=== PATIENT | male | born 1955 | race Caucasian/White ===

== ENCOUNTER 2016-12-18 09:42 | Inpatient (IN) ==
[2016-12-18] MEDS ORDERED: methylPREDNISolone 125 MG/2 ML VIAL IVP ONE (10:01)
--- NOTE | 2016-12-18 10:03 | Emergency Department Note ---
Disposition Clinical Impression: Angio-edema Qualifiers: Encounter type: initial encounter Qualified Code(s): T78.3XXA - Angioneurotic edema, initial encounter Disposition: Admitted As Inpatient Condition: Critical Referrals: Jj Hathaway DO [Primary Care Provider] - Forms: Work/School Release, ED Satisfaction Letter Allergic Reaction HPI - General Chief complaint: ED General Medical Stated complaint: Throat swelling Time Seen by Provider: 12/18/16 09:57 Source: patient Limitations: no limitations Nursing Notes Reviewed: Yes Vital Signs Reviewed: Yes - History of Present Illness HPI Narrative: She is a 61-year-old male with a history of hypertension presents today with swelling of his tongue. He has not taken his lisinopril in a while hehis blood pressure was high took one dose of lisinopril Hydrocort Dyazide last evening and one this morning. He noticed a little bit of tongue swelling yesterday but did not correlate the 2. He comes in this morning with worsening swelling he denies any difficulty swallowing breathing or any wheezes or stridor. Nothing makes his symptoms better or worse. - Related Data Previous Rx's Medication Instructions Recorded amLODIPine [Norvasc] 10 mg PO DAILY #30 tablet 03/19/16 Amoxicillin [Amoxil] 500 mg PO TID #30 capsule 04/14/16 Hydrocodone/Acetaminophen [[place] 1 tab PO Q4H PRN #8 tab 04/14/16 5-325 Tablet] Allergies Allergy/AdvReac Type Severity Reaction Status Date / Time acetaminophen [From Percocet] Allergy Itching Verified 03/18/16 13:32 codeine Allergy Itching Verified 03/12/16 13:34 Oxycodone [From Percocet] Allergy Itching Verified 03/12/16 13:31 All systems ED: reviewed and negative except as stated. Constitutional: Denies: fever, chills, weakness Respiratory: Denies: dyspnea, wheezes, hemoptysis Past Medical History - Past Medical History Source: patient, nursing notes reviewed Medical history: Reports: hypertension Surgical history: Reports: no surgical history Psychiatric history: Reports: no psych history - Social History Smoking Status: Current every day smoker Smokeless Tobacco Status: No Alcohol use: Reports: rarely Drug use: Reports: marijuana Physical Exam - General Limitations: no limitations General appearance: alert - Head Head exam: atraumatic, normocephalic, normal inspection - Eye Eye exam: Present: normal appearance, PERRL, EOMI - Expanded Eye Exam Pupils: Left: reactive - ENT ENT exam: other (Patient has isolated tongue swelling the left of the midline he has no submental edema or fullness) - Expanded ENT Exam External ear exam: Present: normal external inspection Mouth exam: Present: normal external inspection Teeth exam: Present: normal inspection Throat exam: Present: normal inspection - Neck Neck exam: Present: normal inspection, full ROM, trachea midline - Chest Chest inspection: Present: normal inspection, symmetric chest wall rise - Respiratory Respiratory exam: Present: normal lung sounds bilaterally - Cardiovascular Cardiovascular exam: Present: regular rate, normal rhythm, normal heart sounds - Abdominal Exam Abdominal exam: Present: soft, Non-Tender. Absent: tenderness, distention, guarding, rebound, rigidity - Extremities Exam Extremities exam: Present: normal inspection, full ROM. Absent: tenderness, pedal edema - Expanded Upper Extremity Exam Shoulder exam: Present: normal inspection, full ROM Arm exam: Present: normal inspection, full ROM Elbow exam: Present: normal inspection, full ROM Forearm/Wrist exam: Present: normal inspection, full ROM Hand exam: Present: normal inspection, full ROM Vascular exam: Normal: capillary refill, radial pulse - Expanded Lower Extremity Exam Hip/Pelvis exam: Present: normal inspection, full ROM Upper leg exam: Present: normal inspection, full ROM Knee exam: Present: normal inspection, full ROM Lower leg exam: Present: normal inspection, full ROM Ankle exam: Present: normal inspection, full ROM Foot/toe exam: Present: normal inspection, full ROM Neurovascular/Tendon exam: Absent: motor deficit, sensory deficit, tendon deficit - Back Exam Back exam: Present: normal inspection, full ROM. Absent: tenderness - Neurological Exam Neurological exam: Present: alert, oriented X3 - Expanded Neurological Exam Patient oriented to: Present: person, place, time Coma Scale Eye Opening: Spontaneous Coma Scale Motor Response: Obeys Commands Coma Scale Verbal Response: Oriented Coma Scale Total: 15 - Psychiatric Psychiatric exam: Present: normal affect, normal mood - Skin Skin exam: Present: warm, dry, intact, normal color Course - Reevaluation(s) Reevaluation #1: no worsening of symptoms or exam Time: 10:51 Reevaluation #2: Patient swelling of his tongue continued to worsen and also now crossing the midline. He still had only secretions we discussed with him at length about elective intubation before this worsens which could require a surgical airway. He was in agreement also contacted his brother who is here and also a sister who is his POA. Time: 12:15 Vital Signs Temperature 97.5 F L 12/18/16 09:50 Pulse Rate 65 12/18/16 09:50 Respiratory Rate 18 12/18/16 09:50 Blood Pressure 193/111 12/18/16 09:50 O2 Sat by Pulse Oximetry 99 12/18/16 09:50 Temperature 97.5 F L 12/18/16 09:50 Pulse Rate 88 12/18/16 12:17 Respiratory Rate 14 12/18/16 12:17 Blood Pressure 178/114 12/18/16 12:17 O2 Sat by Pulse Oximetry 99 12/18/16 12:17 Oxygen Delivery Oxygen Delivery Ventilator Procedures - Intubation Time out performed: Yes sedative: Ketamine Mg Given: 180 Laryngoscope: Raya ET Tube Size: 7.5 ET Tube Uncuffed: No Tube Secured Depth (cm): 24 Tube Secured Location: lips Tube Placement Confirmation: visualized tube passing through cords, equal breath sounds bilaterally Patient Tolerated Procedure: well, no complications Intubation Complications: none Allergic Reaction - Lab Data Result diagrams: 12/18/16 12:15 12/18/16 12:15 Lab Results 12/18/16 12/18/16 12/18/16 Range/Units 12:15 12:15 12:15 WBC 15.2 H (4.3-11.1) K/mcL RBC 5.90 H (4.19-5.50) M/mcL Hgb 17.5 H (12.9-16.9) g/dL Hct 50.9 H (37.5-50.1) % MCV 86.3 (83.0-100.0) fL MCH 29.7 (28.0-33.3) pg MCHC 34.4 (31.6-35.5) g/dL RDW 12.3 (11.5-14.5) % Plt Count 251 (140-400) K/mcL MPV 11.2 (9.4-12.4) fL Immature Gran % 0.6 (0-4) % Seg Neutrophils % 77.8 % Lymphocytes % 17.9 % Monocytes % 3.2 % Eosinophils % 0.2 % Basophils % 0.3 % Neutrophils # 11.9 H (1.6-8.9) K/mcL Lymphocytes # 2.7 (0.6-4.6) K/mcL Monocytes # 0.5 (0.0-1.3) K/mcL Eosinophils # 0.0 (0.0-0.6) K/mcL Basophils # 0.0 (0.0-0.2) K/mcL PT 11.6 (9.4-12.1) Seconds INR 1.1 APTT 30.0 (26.0-36.0) Seconds Sodium 135 L (136-145) mEq/L Potassium 4.0 (3.5-4.5) mEq/L Chloride 102 (98-109) mEq/L Carbon Dioxide 24 (19-29) mEq/L BUN 14 (8-26) mg/dL Creatinine 1.06 (0.72-1.25) mg/dL Est GFR ( Amer) > 60 (> 60) Est GFR (Non-Af Amer) > 60 (> 60) BUN/Creatinine Ratio 13 (6-26) Glucose 140 H (70-99) mg/dL Calculated Osmolality 283 (280-300) Calcium 9.7 (8.6-10.8) mg/dL Critical Care Time Critical Care Time: Yes Total Critical Care Time: 40 Attestation: Critical care performed: Time is exclusive of separately billable procedures. Time includes: direct patient care, patient reassessment, coordination of patient care, interpretation of data (laboratory data, radiology data, and respiratory data), review of patient's medical records, medical consultation and documentation of patient care. Procedures included in critical care time: Procedures excluded from critical care time:
[2016-12-18] MEDS ORDERED: *HR* Rocuronium Bromide 50 MG/5 ML VIAL IVP ONE (11:40)
[2016-12-18] MEDS ORDERED: *HR* Etomidate 20 MG/10 ML AMPUL IVP ONE (11:41)
[2016-12-18] MEDS ORDERED: Ketamine *HR* 500 MG/10 ML MDV ONE (11:52)
[2016-12-18] MEDS ORDERED: Ketamine *HR* 500 MG/10 ML MDV IVP ONE (11:52)
[2016-12-18] MEDS ORDERED: *HR* FentaNYL (PF) 100 MCG/2 ML VIAL ONE ×2 (12:08→14:18)
[2016-12-18] MEDS ORDERED: *HR* FentaNYL (PF) 100 MCG/2 ML VIAL IVP ONE ×4 (12:11→14:21)
[2016-12-18] MEDS ORDERED: *HR* Midazolam HCl 5 MG/ML VIAL IVP ONE (12:11)
[2016-12-18 12:26] LABS: INR 1.1; Prothrombin Time 11.6 Seconds (9.4-12.1)
[2016-12-18 12:28] LABS: Basophils % 0.3 %; Eosinophils % 0.2 %; Hematocrit 50.9 % (37.5-50.1); Hemoglobin 17.5 g/dL (12.9-16.9); Immature Granulocytes % 0.6 % (0-4); Lymphocytes # 2.7 K/mcL (0.6-4.6); Lymphocytes % 17.9 %; Mean Corpuscular HGB Conc 34.4 g/dL (31.6-35.5); Mean Corpuscular Hemoglobin 29.7 pg (28.0-33.3); Mean Corpuscular Volume 86.3 fL (83.0-100.0); Mean Platelet Volume 11.2 fL (9.4-12.4); Monocytes # 0.5 K/mcL (0.0-1.3); Monocytes % 3.2 %; Neutrophils # 11.9 K/mcL (1.6-8.9); Platelet Count 251 K/mcL (140-400); Red Cell Distribution Width 12.3 % (11.5-14.5); Segmented Neutrophils % 77.8 %
[2016-12-18 12:36] LABS: BUN/Creatinine Ratio 13 (6-26); Blood Urea Nitrogen 14 mg/dL (8-26); Calcium 9.7 mg/dL (8.6-10.8); Carbon Dioxide 24 mEq/L (19-29); Chloride 102 mEq/L (98-109); Glucose 140 mg/dL (70-99); Osmolality,Calculated 283 (280-300); Sodium 135 mEq/L (136-145); eGFR For African Americans > 60 (> 60); eGFR For Non-African Americans > 60 (> 60)
[2016-12-18] MEDS: Propofol 500 MG/50 ML INFUS..BTL IVC SCH ×2 (12:39→19:50)
[2016-12-18] MEDS ORDERED: *HR* Propofol 500 MG/50 ML BOTTLE IVP ONE (13:31)
[2016-12-18] MEDS ORDERED: *HR* Vecuronium 10 MG VIAL ONE (13:56)
[2016-12-18] MEDS ORDERED: *HR* Rocuronium Bromide 100 MG/10 ML VIAL IVC ONE (13:58)
[2016-12-18] MEDS ORDERED: *HR* Midazolam HCl 5 MG/5 ML VIAL IVP ONE (13:58)
[2016-12-18] MEDS ORDERED: *HR* Vecuronium 10 MG VIAL IVP ONE (14:04)
[2016-12-18] MEDS: FentaNYL (PF) 1,000 MCG in 0.9 % Sodium Chloride 80 ML IVC SCH ×2 (14:49→23:57)
[2016-12-18 15:39] LABS: ABG HCO3 26.6 mEQ/L (21-27); ABG Oxygen Saturation 100 % (95-98); ABG PCO2 68 mmHg (35-45); ABG PO2 201 mmHg (85-104); ABG TCO2 28.7 mEq/L (20-26)
[2016-12-18 15:42] LABS: Blood Gas FiO2 100 %
[2016-12-18] MEDS: Ipratropium/Albuterol Neb 3 ML IH SCH ×3 (16:31→23:53)
[2016-12-18] MEDS ORDERED: Naloxone 0.4 MG/ML INJ IVP PRN (16:50)
[2016-12-18] MEDS ORDERED: Pantoprazole 40 MG VIAL IVPB SCH (17:00)
[2016-12-18] MEDS ORDERED: Lacri-Lube 3.5 GM TUBE BOTH EYES PRN (17:06)
[2016-12-18 17:23] LABS: ABG Base Excess -1.2 mEq/L (-2.0 to 3.0); ABG HCO3 26.6 mEQ/L (21-27); ABG Oxygen Saturation 93 % (95-98); ABG PCO2 54 mmHg (35-45); ABG PO2 74 mmHg (85-104); ABG TCO2 28.3 mEq/L (20-26); Blood Gas FiO2 60 %
[2016-12-18] MEDS: *HR* Heparin 5,000 UNIT/ML VIAL SQ SCH ×2 (17:40→23:28)
[2016-12-18] MEDS: Famotidine 20 MG/2 ML VIAL IVP SCH (17:40)
[2016-12-18] MEDS: MethylPREDNISolone 40 MG/ML VIAL IVP SCH (17:40)
--- NOTE | 2016-12-18 17:49 | Pulmonology History & Physical ---
<Anuel Pratt W - Last Filed: 12/18/16 18:04> Date of Encounter: 12/18/16 History of Present Illness HPI: Mr. Suresh is a 61 year old male Medications and Allergies Ibuprofen [Advil] 200 - 800 mg PO Q6H PRN 12/18/16 [History] Lisinopril/Hydrochlorothiazide [Zestoretic 10-12.5 mg Tablet] 1 tab PO DAILY [History] Allergies acetaminophen [From Percocet] Allergy (Verified 03/18/16 13:32) Itching codeine Allergy (Verified 03/12/16 13:34) Itching Oxycodone [From Percocet] Allergy (Verified 03/12/16 13:31) Itching All Systems: A 10-system review of systems was performed and is negative for pertinent findings except as documented above in the HPI. Physical Examination Vital Signs: Vital Signs, Last 4 Hours Temp Pulse Resp BP Pulse Ox 12/18/16 17:00 87 12 100/78 95 12/18/16 16:00 97.7 F 90 14 123/86 90 12/18/16 15:13 12 166/111 97 12/18/16 15:00 89 14 166/111 97 12/18/16 14:55 89 12/18/16 14:21 14 163/100 12/18/16 14:10 97.6 F 108 12 240/158 97 Results - Laboratory Findings CBC and BMP: 12/18/16 12:15 12/18/16 12:15 ABG ABG pH 7.30 pH Units (7.32-7.45) L 12/18/16 17:10 ABG pCO2 54 mmHg (35-45) H 12/18/16 17:10 ABG pO2 74 mmHg (85-104) L 12/18/16 17:10 ABG O2 Saturation 93 % (95-98) L 12/18/16 17:10 PT/INR, D-dimer PT 11.6 Seconds (9.4-12.1) 12/18/16 12:15 Abnormal lab findings: Abnormal lab results WBC 15.2 K/mcL (4.3-11.1) H 12/18/16 12:15 RBC 5.90 M/mcL (4.19-5.50) H 12/18/16 12:15 Hgb 17.5 g/dL (12.9-16.9) H 12/18/16 12:15 Hct 50.9 % (37.5-50.1) H 12/18/16 12:15 Neutrophils # 11.9 K/mcL (1.6-8.9) H 12/18/16 12:15 ABG pH 7.30 pH Units (7.32-7.45) L 12/18/16 17:10 ABG pCO2 54 mmHg (35-45) H 12/18/16 17:10 ABG pO2 74 mmHg (85-104) L 12/18/16 17:10 ABG Total CO2 28.3 mEq/L (20-26) H 12/18/16 17:10 ABG O2 Saturation 93 % (95-98) L 12/18/16 17:10 Sodium 135 mEq/L (136-145) L 12/18/16 12:15 Glucose 140 mg/dL (70-99) H 12/18/16 12:15 POC Glucose 163 (58-89) H 12/18/16 14:13 - Attending Attestation I examined this patient and my medical decision-making was reviewed with the Resident Physician. I agree with the documented findings, disposition and treatment plan as described except to the extent set forth below. Patient seen and examined at bedside Labs, radiology, chart personally reviewed. Neuropsych: Intubated deeply sedated while on vent no focal neurological deficits. The patient will need to be deep recent sedated for concern of self extubation in the context of angioedema and airway emergency. This may require neuromuscular blockade Pulm: Intubated for airway protection patient has underlying COPD and is active user of tobacco we will start bronchodilators does not appear to have exacerbation evidence of pneumonia on chest x-ray. He has evidence of hypercarbia on ABG which is respiratory in nature and likely related to hypoventilation I have adjusted his ventilator settings to improve this including increasing respiratory rate. He has acceptable oxygenation on 50% FiO2. Cards: Patient has a history of severe hypertension which was very elevated when he arrived to the medical ICU I think this was a product of patient having undergone neuromuscular blockade without adequate sedation and analgesia this is been adjusted pressures are much more favorable goal for him would be about 160-180 systolic as baseline blood pressure runs 200 to 230s systolic. FEN-GI: Nothing by mouth for now check prophylaxis given Renal: No evidence of any Acceptable urine output ID: Leukocytosis which is likely stress in nature culture patient but no indication for empiric antimicrobials Heme/Onc: DVT prophylaxis given Endo: Glucose monitored Integ/MSK: Skin care per routine ICU protocol to prevent ulcers Allergy: Presents with acute angioedema likely secondary to RITO inhibitor use this as been discontinued his been given steroid H when H2-cierra is outside the window for bradykinin antagonist CODE: Full Code his family and including long-time life partner and children were updated and 2 adult sisters <Nia Hager-Eda - Last Filed: 12/18/16 19:01> Date of Encounter: 12/18/16 Time of Encounter: 17:49 Assessment and Plan (1) Angio-edema Current visit: Yes Status: Acute Patient presents with acute angioedema likely secondary to RITO inhibitor use. Patient is intubated to protect his airway. Lisinopril has been discontinued. Patient was given steroids, Benadryl, and Pepcid. Continue to monitor the patient closely. Qualifiers: Encounter type: initial encounter Qualified Code(s): T78.3XXA - Angioneurotic edema, initial encounter (2) Hypertension Current visit: Yes Status: Acute Patient has a history of severe hypertension and his blood pressure was very elevated when he presented to the ICU. His hypertension can be secondary to being paralyzed for intubation without sedation. He is currently on fentanyl and propofol sedation. Intended to monitor the patient closely. Qualifiers: Hypertension type: unspecified secondary hypertension Qualified Code(s): I15.9 - Secondary hypertension, unspecified; I15 - Secondary hypertension (3) COPD (chronic obstructive pulmonary disease) Current visit: Yes Status: Acute Patient has underlying COPD and is currently a smoker. Patient is currently intubated for every protection. No evidence of COPD exacerbation of pneumonia on chest x-ray. He has evidence of Hypercarbia on ABG which is most likely related to hypoventilation. The ventilator settings were adjusted and repeat ABG's were ordered. Duoneb and solu-medro was ordered. Qualifiers: COPD type: unspecified COPD Qualified Code(s): J44.9 - Chronic obstructive pulmonary disease, unspecified (4) Elevated glucose Current visit: Yes Status: Acute Patient was given insulin. Continue to monitor the patient closely (5) DVT prophylaxis Current visit: Yes Status: Acute Heparin was given for DVT prophylaxis. History of Present Illness Chief complaint: Angioedema HPI: Mr. Suresh is a 61 year old male with a past medical history of hypertension presented to the ICU with angioedema. Patient presented intubated and paralyzed therefore history was unable to be obtained from the patient. Per ED documentation, patient presented to the ED with the swelling of his tongue after he has taken lisinopril last evening and one this morning. Patient states that he noticed mild swelling of his tongue yesterday but it has worsened today. Past Med Surg Social Fam HX - Past Medical History Medical history: hypertension Psychiatric history: no psych history - Past Surgical History Surgical History: no surgical history - Social History Smoking Status: Current every day smoker Packs per day: 2.5 Smokeless Tobacco Status: No Alcohol use: rarely Drug use: marijuana - Family History Sister Living Status: Still Living Hx Family Endocrine Disorder: Yes (Graves) Father Living Status: Age at : 70 Cause of : COPD Hx Family Respiratory Disorders: Yes Mother History Unknown: Yes Living Status: Still Living Hx Family Cardiac Disorders: Yes (AAA, CAD) Hx Family GI Disorders: Yes (diverticulosis/ PUD) Hx Family Endocrine Disorder: Yes (DM) Hx Family Neurologic Disorders: Yes (brain aneurysm) Hx Family Autoimmune Disorders: Yes (lupus) ROS unobtainable: due to endotracheal tube All Systems: A 10-system review of systems was performed and is negative for pertinent findings except as documented above in the HPI. - Constitutional Constitutional: as per HPI Physical Examination Vital Signs: Vital Signs, Last 4 Hours Temp Pulse Resp BP Pulse Ox 12/18/16 17:00 87 12 100/78 95 12/18/16 16:00 97.7 F 90 14 123/86 90 12/18/16 15:13 12 166/111 97 12/18/16 15:00 89 14 166/111 97 12/18/16 14:55 89 12/18/16 14:21 14 163/100 12/18/16 14:10 97.6 F 108 12 240/158 97 General appearance: other (Patient is intubated and sedated.) Eyes: nonicteric Neck: supple, no lymphadenopathy, lymphadenopathy Effort: mildly labored Auscultation: bilateral: wheezes Cardiovascular: regular rate and rhythm Gastrointestinal: soft, non-tender, non-distended Extremities: no cyanosis Results - Laboratory Findings CBC and BMP: 12/18/16 12:15 12/18/16 12:15 ABG ABG pH 7.30 pH Units (7.32-7.45) L 12/18/16 17:10 ABG pCO2 54 mmHg (35-45) H 12/18/16 17:10 ABG pO2 74 mmHg (85-104) L 12/18/16 17:10 ABG O2 Saturation 93 % (95-98) L 12/18/16 17:10 PT/INR, D-dimer PT 11.6 Seconds (9.4-12.1) 12/18/16 12:15 Abnormal lab findings: Abnormal lab results WBC 15.2 K/mcL (4.3-11.1) H 12/18/16 12:15 RBC 5.90 M/mcL (4.19-5.50) H 12/18/16 12:15 Hgb 17.5 g/dL (12.9-16.9) H 12/18/16 12:15 Hct 50.9 % (37.5-50.1) H 12/18/16 12:15 Neutrophils # 11.9 K/mcL (1.6-8.9) H 12/18/16 12:15 ABG pH 7.30 pH Units (7.32-7.45) L 12/18/16 17:10 ABG pCO2 54 mmHg (35-45) H 12/18/16 17:10 ABG pO2 74 mmHg (85-104) L 12/18/16 17:10 ABG Total CO2 28.3 mEq/L (20-26) H 12/18/16 17:10 ABG O2 Saturation 93 % (95-98) L 12/18/16 17:10 Sodium 135 mEq/L (136-145) L 12/18/16 12:15 Glucose 140 mg/dL (70-99) H 12/18/16 12:15 POC Glucose 163 (58-89) H 12/18/16 14:13
[2016-12-18] MEDS ORDERED: Dextrose Gel 15 GM PO PRN ×2 (17:53)
[2016-12-18] MEDS ORDERED: D5% in Water 1,000 ML IVC PRN (17:53)
[2016-12-18] MEDS ORDERED: *HR* Dextrose 50 % in Water (Syg) 50 ML SYRINGE IVP PRN (17:53)
--- NOTE | 2016-12-18 18:13 | Electrocardiograph Report ---
[address] [address] Test Date: 2016-12-18 Pat Name: Aroldo Suresh Department: 104 Room: [facility] Gender: M Server Manager: PAM : [id number] Requested By: Janak Mauricio Order Number: [id number] Reading MD: Jackie Pinto Measurements Intervals [place] Rate: 109 P: 58 UT: 132 QRS: 63 QRSD: 108 T: 58 QT: 303 QTc: 367 Interpretive Statements SINUS TACHYCARDIA POSSIBLE LEFT ATRIAL ENLARGEMENT MODERATE INTRAVENTRICULAR CONDUCTION DELAY NONSPECIFIC ST & T-WAVE ABNORMALITY Electronically Signed On 12-18-2016 18:11:54 EDT by Jackie Pinto
[2016-12-18] MEDS: Insulin LISPRO 300 UNITS/3 ML VIAL SQ SCH ×2 (19:45→23:30)
[2016-12-18] MEDS: Chlorhexidine Rinse 15 ML MOUTHWASH MM SCH (19:47)
[2016-12-18] MEDS: Lacri-Lube 3.5 GM TUBE BOTH EYES SCH ×2 (19:47→23:32)
[2016-12-19 01:21] LABS: Basophils % 0.2 %; Hematocrit 53.7 % (37.5-50.1); Immature Granulocytes % 0.8 % (0-4); Lymphocytes # 1.2 K/mcL (0.6-4.6); Lymphocytes % 5.5 %; Mean Corpuscular HGB Conc 33.5 g/dL (31.6-35.5); Mean Corpuscular Hemoglobin 29.2 pg (28.0-33.3); Mean Platelet Volume 10.8 fL (9.4-12.4); Monocytes # 1.3 K/mcL (0.0-1.3); Neutrophils # 19.3 K/mcL (1.6-8.9); Platelet Count 282 K/mcL (140-400); Red Blood Count 6.17 M/mcL (4.19-5.50); Red Cell Distribution Width 12.7 % (11.5-14.5); Segmented Neutrophils % 87.5 %
[2016-12-19 01:34] LABS: Albumin 3.8 g/dL (3.5-5.0); Bilirubin,Total 0.4 mg/dL (0.2-1.2); Calcium 9.2 mg/dL (8.6-10.8); Globulin 3.8 g/dL (2.4-3.5); Total Protein 7.6 g/dL (6.0-8.3)
[2016-12-19 01:38] LABS: Potassium 5.5 mEq/L (3.5-4.5)
[2016-12-19] MEDS ORDERED: 0.9 % Sodium Chloride 1,000 ML IVC ONE ×2 (01:52→14:38)
[2016-12-19] MEDS ORDERED: Calcium Gluconate 1,000 MG in D5% in Water 100 ML IVPB ONE (01:53)
[2016-12-19] MEDS: Saliva Stimulant 100ml BOTTLE PO PRN ×5 (02:40→19:56)
[2016-12-19] MEDS: Lacri-Lube 3.5 GM TUBE BOTH EYES SCH ×5 (03:24→19:56)
[2016-12-19] MEDS: Propofol 500 MG/50 ML INFUS..BTL IVC SCH (03:29)
[2016-12-19] MEDS: Ipratropium/Albuterol Neb 3 ML IH SCH ×5 (04:10→22:33)
[2016-12-19] MEDS: 0.9 % Sodium Chloride 1,000 ML IVC SCH ×5 (04:33→16:12)
[2016-12-19 05:19] LABS: ABG Base Excess -5.2 mEq/L (-2.0 to 3.0); ABG HCO3 23.1 mEQ/L (21-27); ABG Oxygen Saturation 94 % (95-98); ABG PCO2 54 mmHg (35-45); ABG PH 7.24 pH Units (7.32-7.45); ABG PO2 82 mmHg (85-104); ABG TCO2 24.8 mEq/L (20-26)
[2016-12-19 05:22] LABS: Blood Gas FiO2 60 %
[2016-12-19] MEDS: MethylPREDNISolone 40 MG/ML VIAL IVP SCH ×2 (05:31→16:57)
[2016-12-19] MEDS: Famotidine 20 MG/2 ML VIAL IVP SCH ×2 (05:32→16:57)
[2016-12-19] MEDS: *HR* Heparin 5,000 UNIT/ML VIAL SQ SCH ×3 (05:34→22:11)
[2016-12-19] MEDS: Insulin LISPRO 300 UNITS/3 ML VIAL SQ SCH ×3 (06:28→16:54)
[2016-12-19] MEDS ORDERED: *HR* Dextrose 50 % in Water (Syg) 50 ML SYRINGE IVP ONE (07:47)
[2016-12-19] MEDS ORDERED: Insulin Regular, Human 100 UNIT/ML SQ ONE (07:53)
--- NOTE | 2016-12-19 08:34 | Pulmonology Progress Note ---
<TuAnuel ortiz W - Last Filed: 12/19/16 11:14> Date of Encounter: 12/19/16 Objective PUL Vital signs: Last Vital Signs Temp 98.5 F 12/19/16 07:00 Pulse 86 12/19/16 11:00 Resp 14 12/19/16 11:00 BP 109/67 12/19/16 11:00 Pulse Ox 96 12/19/16 11:00 Ventilator Settings Ventilator Settings: Ventilator Settings, Last 8 Hours Ventilator Mode VC+ Ventilator Mode VC+ Ventilator Mode VC+ Ventilator Mode VC+ Ventilator Mode VC+ Ventilator Mode VC+ Ventilator Mode VC+ Ventilator Mode VC+ Ventilator Mode VC+ Ventilator Mode VC+ Ventilator Mode VC+ Ventilator Tidal Volume 550 Setting Ventilator Tidal Volume 550 Setting Ventilator Tidal Volume 550 Setting Ventilator Tidal Volume 550 Setting Ventilator Tidal Volume 550 Setting Ventilator Tidal Volume 500 Setting Ventilator Tidal Volume 500 Setting Ventilator Tidal Volume 500 Setting Ventilator Tidal Volume 500 Setting Ventilator Tidal Volume 500 Setting Ventilator Tidal Volume 500 Setting Ventilator Respiratory Rate 12 Setting Ventilator Respiratory Rate 12 Setting Ventilator Respiratory Rate 12 Setting Ventilator Respiratory Rate 12 Setting Ventilator Respiratory Rate 12 Setting Ventilator Respiratory Rate 12 Setting Ventilator Respiratory Rate 12 Setting Ventilator Respiratory Rate 12 Setting Ventilator Respiratory Rate 12 Setting Ventilator Respiratory Rate 12 Setting Ventilator Respiratory Rate 12 Setting Actual Respiratory Rate 14 Actual Respiratory Rate 16 Actual Respiratory Rate 15 Actual Respiratory Rate 12 Actual Respiratory Rate 13 Actual Respiratory Rate 17 Actual Respiratory Rate 19 Actual Respiratory Rate 18 Actual Respiratory Rate 13 Actual Respiratory Rate 18 Positive End Expiratory 5 Pressure Positive End Expiratory 5 Pressure Positive End Expiratory 5 Pressure Positive End Expiratory 5 Pressure Positive End Expiratory 5 Pressure Positive End Expiratory 5 Pressure Positive End Expiratory 5 Pressure Positive End Expiratory 5 Pressure Positive End Expiratory 5 Pressure Positive End Expiratory 5 Pressure Positive End Expiratory 5 Pressure Peak Inspiratory Airway 20 Pressure Peak Inspiratory Airway 22 Pressure Peak Inspiratory Airway 22 Pressure Peak Inspiratory Airway 22 Pressure Peak Inspiratory Airway 22 Pressure Peak Inspiratory Airway 20 Pressure Peak Inspiratory Airway 20 Pressure Peak Inspiratory Airway 20 Pressure Peak Inspiratory Airway 28 Pressure Peak Inspiratory Airway 23 Pressure Results - Laboratory Findings CBC and BMP: 12/19/16 01:05 12/19/16 08:58 ABG ABG pH 7.24 pH Units (7.32-7.45) L 12/19/16 05:15 ABG pCO2 54 mmHg (35-45) H 12/19/16 05:15 ABG pO2 82 mmHg (85-104) L 12/19/16 05:15 ABG O2 Saturation 94 % (95-98) L 12/19/16 05:15 PT/INR, D-dimer PT 11.6 Seconds (9.4-12.1) 12/18/16 12:15 Abnormal lab findings: Abnormal lab results WBC 22.1 K/mcL (4.3-11.1) H 12/19/16 01:05 RBC 6.17 M/mcL (4.19-5.50) H 12/19/16 01:05 Hgb 18.0 g/dL (12.9-16.9) H 12/19/16 01:05 Hct 53.7 % (37.5-50.1) H 12/19/16 01:05 Neutrophils # 19.3 K/mcL (1.6-8.9) H 12/19/16 01:05 ABG pH 7.24 pH Units (7.32-7.45) L 12/19/16 05:15 ABG pCO2 54 mmHg (35-45) H 12/19/16 05:15 ABG pO2 82 mmHg (85-104) L 12/19/16 05:15 ABG O2 Saturation 94 % (95-98) L 12/19/16 05:15 ABG Base Excess -5.2 mEq/L (-2.0 to 3.0) L 12/19/16 05:15 Sodium 134 mEq/L (136-145) L 12/19/16 08:58 Potassium 5.2 mEq/L (3.5-4.5) H 12/19/16 08:58 BUN 30 mg/dL (8-26) H 12/19/16 08:58 Creatinine 2.93 mg/dL (0.72-1.25) H 12/19/16 08:58 Est GFR ( Amer) 27 (> 60) L 12/19/16 08:58 Est GFR (Non-Af Amer) 22 (> 60) L 12/19/16 08:58 Glucose 233 mg/dL (70-99) H 12/19/16 08:58 POC Glucose 140 (58-89) H 12/19/16 06:20 Calcium 8.1 mg/dL (8.6-10.8) L 12/19/16 08:58 Globulin 3.8 g/dL (2.4-3.5) H 12/19/16 01:05 Albumin/Globulin Ratio 1.0 (1.1-2.2) L 12/19/16 01:05 - Clinical Findings Intake & Output: Intake & Output 12/18/16 12/19/16 12/19/16 23:59 07:59 15:59 Intake Total 225.0 / 225.0 2516 / 2516 123 / 123 Output Total 750 / 750 75 / 75 Balance -525.0 / -525.0 2441 / 2441 123 / 123 Weight 91.3 kg Consult Discharge Plan - Plan Referrals: Jj Hathaway DO [Primary Care Provider] - - Attending Attestation I examined this patient and my medical decision-making was reviewed with the Resident Physician. I agree with the documented findings, disposition and treatment plan as described except to the extent set forth below. Patient seen and examined at bedside Labs, radiology, chart personally reviewed. All lines examined without evidence of infection. Management was reviewed during multidisciplinary critical care rounds. Neuropsych: He is sedated on the vent but he is able to follow simple commands appears calm without neurological deficit goal SILVIA 3 Pulm: Intubated for airway protection history of COPD and current tobacco abuse hypoventilation leading to respiratory acidosis yesterday which is improved a bit today I suspect he has a chronic component to respiratory acidosis from airway obstruction Cards: Chronic hypertension which is currently controlled on sedation for vent FEN-GI: Nothing by mouth for now prophylaxis given Renal: Mixed Acidosis with metabolic component driven by oliguric acute kidney injury secondary to hypotension and use of RITO inhibitor; urine studies pending along with renal ultrasound his been given IV crystalloid infusion with some improvement and output we can repeat this as clinically warranted. He had mild hyperkalemia that has improved at last check and we will follow this up with a repeat electrolyte panel this afternoon he may need a nephrology consult if no improvement ID: Leukocytosis which is secondary to stress and administration steroids patient has been cultured no fever and no clear source of infection we will continue to monitor Heme/Onc: DVT prophylaxis given Endo: Glucose monitored starting sliding scale insulin for hyperglycemia while on steroids Integ/MSK: Skin care per routine ICU protocol to prevent Skin ulcers Allergy: Acute angioedema secondary to RITO inhibitor use we will wean steroids continuing H1 and H2 cierra there is been some improvement overall in amount of oropharyngeal edema CODE: Full code <Nia Hager-My - Last Filed: 12/19/16 11:51> Date of Encounter: 12/19/16 Time of Encounter: 08:34 Assessment and Plan (1) Angio-edema Current Visit: Yes Status: Acute Patient presents with acute angioedema likely secondary to RITO inhibitor use. Patient is intubated to protect his airway. Lisinopril has been discontinued. The oropharyngeal edema has improved since yesterday. Plan to wean the steroids and continue H1 and H2 blockers. Leukocytosis is also present. It is possibly secondary to stress and administration of steroids. The blood culture is pending. The patient has no fever and no clear source of infection. Continue to monitor the patient closely. Qualifiers: Encounter type: initial encounter Qualified Code(s): T78.3XXA - Angioneurotic edema, initial encounter (2) JOHNNY (acute kidney injury) Current Visit: Yes Status: Acute Oliguric acute kidney injury is likely secondary to hypotension and use of RITO inhibitor. Renal utrasound and urine studies are currently pending. BUN is at 30 and creatinine is at 2.93. Patient has been given fluids with some improvement and output. As of 11:22 AM, patient has urine output of 125 mL since 7 AM. She has mild hypokalemia. Patient was given insulin and calcium gluconate. Repeat potassium has improved. Continue to follow this up with repeat electrolyte panel this afternoon. If no improvement, consult nephrology. (3) Hypertension Current Visit: Yes Status: Acute Patient has a history of severe hypertension and his blood pressure was very elevated when he presented to the ICU. His hypertension can be secondary to being paralyzed for intubation without sedation. He is currently on fentanyl and propofol sedation. Patient hypertension is currently controlled. Continue to monitor the patient closely. Qualifiers: Hypertension type: unspecified secondary hypertension Qualified Code(s): I15.9 - Secondary hypertension, unspecified; I15 - Secondary hypertension (4) COPD (chronic obstructive pulmonary disease) Current Visit: Yes Status: Acute Patient has underlying COPD and is currently a smoker. Patient is currently intubated for airway protection. No evidence of COPD exacerbation or pneumonia on chest x-ray. ABG still indicates respiratory acidosis but is improved since yesterday. Duoneb and solu-medro was ordered. Qualifiers: COPD type: unspecified COPD Qualified Code(s): J44.9 - Chronic obstructive pulmonary disease, unspecified (5) Elevated glucose Current Visit: Yes Status: Acute Patient was given insulin. Continue to monitor the patient closely (6) DVT prophylaxis Current Visit: Yes Status: Acute Heparin was given for DVT prophylaxis. Objective PUL Vital signs: Last Vital Signs Temp 98.5 F 12/19/16 07:00 Pulse 82 12/19/16 07:30 Resp 13 12/19/16 07:00 BP 114/72 12/19/16 07:00 Pulse Ox 97 12/19/16 07:00 General appearance: no acute distress, alert, other (Patient is intubated and mildly sedated.) Eyes: nonicteric ENT: oropharynx moist Neck: supple, no lymphadenopathy, no JVD Effort: normal Auscultation: bilateral: diminished breath sounds, wheezes (Expiratory wheezes are present bilaterally) Cardiovascular: regular rate and rhythm Gastrointestinal: normoactive bowel sounds, soft, non-tender, non-distended Integumentary: normal Extremities: no cyanosis, no edema, no clubbing, pulses normal Musculoskeletal: no deformities other (Patient is intubated. Patient follows commands.) Ventilator Settings Ventilator Settings: Ventilator Settings, Last 8 Hours Ventilator Mode VC+ Ventilator Mode VC+ Ventilator Mode VC+ Ventilator Mode VC+ Ventilator Mode VC+ Ventilator Mode VC+ Ventilator Mode VC+ Ventilator Mode VC+ Ventilator Mode VC+ Ventilator Mode VC+ Ventilator Mode VC+ Ventilator Tidal Volume 550 Setting Ventilator Tidal Volume 500 Setting Ventilator Tidal Volume 500 Setting Ventilator Tidal Volume 500 Setting Ventilator Tidal Volume 500 Setting Ventilator Tidal Volume 500 Setting Ventilator Tidal Volume 500 Setting Ventilator Tidal Volume 500 Setting Ventilator Tidal Volume 500 Setting Ventilator Tidal Volume 500 Setting Ventilator Tidal Volume 500 Setting Ventilator Respiratory Rate 12 Setting Ventilator Respiratory Rate 12 Setting Ventilator Respiratory Rate 12 Setting Ventilator Respiratory Rate 12 Setting Ventilator Respiratory Rate 12 Setting Ventilator Respiratory Rate 12 Setting Ventilator Respiratory Rate 12 Setting Ventilator Respiratory Rate 12 Setting Ventilator Respiratory Rate 12 Setting Ventilator Respiratory Rate 12 Setting Ventilator Respiratory Rate 12 Setting Actual Respiratory Rate 13 Actual Respiratory Rate 17 Actual Respiratory Rate 19 Actual Respiratory Rate 18 Actual Respiratory Rate 13 Actual Respiratory Rate 18 Actual Respiratory Rate 14 Actual Respiratory Rate 15 Actual Respiratory Rate 18 Actual Respiratory Rate 16 Positive End Expiratory 5 Pressure Positive End Expiratory 5 Pressure Positive End Expiratory 5 Pressure Positive End Expiratory 5 Pressure Positive End Expiratory 5 Pressure Positive End Expiratory 5 Pressure Positive End Expiratory 5 Pressure Positive End Expiratory 5 Pressure Positive End Expiratory 5 Pressure Positive End Expiratory 5 Pressure Positive End Expiratory 5 Pressure Peak Inspiratory Airway 22 Pressure Peak Inspiratory Airway 20 Pressure Peak Inspiratory Airway 20 Pressure Peak Inspiratory Airway 20 Pressure Peak Inspiratory Airway 28 Pressure Peak Inspiratory Airway 23 Pressure Peak Inspiratory Airway 21 Pressure Peak Inspiratory Airway 13 Pressure Peak Inspiratory Airway 15 Pressure Peak Inspiratory Airway 14 Pressure Results - Laboratory Findings CBC and BMP: 12/19/16 01:05 12/19/16 08:58 ABG ABG pH 7.24 pH Units (7.32-7.45) L 12/19/16 05:15 ABG pCO2 54 mmHg (35-45) H 12/19/16 05:15 ABG pO2 82 mmHg (85-104) L 12/19/16 05:15 ABG O2 Saturation 94 % (95-98) L 12/19/16 05:15 PT/INR, D-dimer PT 11.6 Seconds (9.4-12.1) 12/18/16 12:15 Abnormal lab findings: Abnormal lab results WBC 22.1 K/mcL (4.3-11.1) H 12/19/16 01:05 RBC 6.17 M/mcL (4.19-5.50) H 12/19/16 01:05 Hgb 18.0 g/dL (12.9-16.9) H 12/19/16 01:05 Hct 53.7 % (37.5-50.1) H 12/19/16 01:05 Neutrophils # 19.3 K/mcL (1.6-8.9) H 12/19/16 01:05 ABG pH 7.24 pH Units (7.32-7.45) L 12/19/16 05:15 ABG pCO2 54 mmHg (35-45) H 12/19/16 05:15 ABG pO2 82 mmHg (85-104) L 12/19/16 05:15 ABG O2 Saturation 94 % (95-98) L 12/19/16 05:15 ABG Base Excess -5.2 mEq/L (-2.0 to 3.0) L 12/19/16 05:15 Sodium 133 mEq/L (136-145) L 12/19/16 01:05 Potassium 5.5 mEq/L (3.5-4.5) H D 12/19/16 01:05 Creatinine 2.60 mg/dL (0.72-1.25) H D 12/19/16 01:05 Est GFR ( Amer) 31 (> 60) L 12/19/16 01:05 Est GFR (Non-Af Amer) 25 (> 60) L 12/19/16 01:05 Glucose 146 mg/dL (70-99) H 12/19/16 01:05 POC Glucose 140 (58-89) H 12/19/16 06:20 Globulin 3.8 g/dL (2.4-3.5) H 12/19/16 01:05 Albumin/Globulin Ratio 1.0 (1.1-2.2) L 12/19/16 01:05 - Clinical Findings Intake & Output: Intake & Output 12/18/16 12/19/16 12/19/16 23:59 07:59 15:59 Intake Total 225.0 / 225.0 2516 / 2516 Output Total 750 / 750 75 / 75 Balance -525.0 / -525.0 2441 / 2441 Weight 91.3 kg
[2016-12-19] MEDS: Chlorhexidine Rinse 15 ML MOUTHWASH MM SCH ×2 (08:35→19:59)
[2016-12-19] MEDS: FentaNYL (PF) 1,000 MCG in 0.9 % Sodium Chloride 80 ML IVC SCH ×2 (09:02→19:52)
[2016-12-19 09:18] LABS: Potassium,Urine 93.3 mEq/L
[2016-12-19 09:27] LABS: Calcium 8.1 mg/dL (8.6-10.8); Potassium 5.2 mEq/L (3.5-4.5)
[2016-12-19] MEDS ORDERED: Calcium Gluconate 1,000 MG in D5% in Water 100 ML IVPB PRN (13:41)
[2016-12-19] MEDS ORDERED: Magnesium Sulfate 2 GM in D5% in Water 100 ML IVPB PRN (13:41)
--- NOTE | 2016-12-19 14:18 | Electrocardiograph Report ---
[address] [place], [place] [address] Test Date: 2016-12-19 Pat Name: Aroldo Suresh Department: 109 Room: PSYCHIATRIC Gender: M [employer] Supervisor: JESSE : 1955 Requested By: Monica Hager Order Number: [id number] Reading MD: Wilfred Jha MD Measurements Intervals [place] Rate: 83 P: 57 VA: 132 QRS: 57 QRSD: 89 T: 73 QT: 420 QTc: 459 Interpretive Statements SINUS RHYTHM Electronically Signed On 12-19-2016 14:16:24 EDT by Wilfred Jha MD
[2016-12-19 15:46] LABS: Calcium 8.1 mg/dL (8.6-10.8); Magnesium 1.8 mg/dL (1.6-2.6); Phosphorous 4.1 mg/dL (2.3-4.7); Potassium 4.9 mEq/L (3.5-4.5)
[2016-12-20] MEDS: Insulin LISPRO 300 UNITS/3 ML VIAL SQ SCH ×4 (00:01→18:14)
[2016-12-20] MEDS: Lacri-Lube 3.5 GM TUBE BOTH EYES SCH ×6 (00:01→20:50)
[2016-12-20] MEDS: Saliva Stimulant 100ml BOTTLE PO PRN ×2 (00:02→04:41)
[2016-12-20] MEDS: Ipratropium/Albuterol Neb 3 ML IH SCH ×6 (00:37→20:13)
[2016-12-20] MEDS: 0.9 % Sodium Chloride 1,000 ML IVC SCH ×3 (02:19→20:49)
[2016-12-20] MEDS: FentaNYL (PF) 1,000 MCG in 0.9 % Sodium Chloride 80 ML IVC SCH ×3 (04:41→22:21)
[2016-12-20] MEDS: *HR* Heparin 5,000 UNIT/ML VIAL SQ SCH ×3 (04:48→21:07)
[2016-12-20] MEDS: MethylPREDNISolone 40 MG/ML VIAL IVP SCH (04:49)
[2016-12-20] MEDS: Famotidine 20 MG/2 ML VIAL IVP SCH ×2 (04:51→18:11)
[2016-12-20 05:17] LABS: Basophils % 0.1 %; Hematocrit 43.8 % (37.5-50.1); Immature Granulocytes % 0.4 % (0-4); Lymphocytes # 1.2 K/mcL (0.6-4.6); Lymphocytes % 7.5 %; Mean Corpuscular HGB Conc 31.7 g/dL (31.6-35.5); Mean Corpuscular Hemoglobin 28.6 pg (28.0-33.3); Mean Corpuscular Volume 90.1 fL (83.0-100.0); Mean Platelet Volume 10.4 fL (9.4-12.4); Monocytes # 2.3 K/mcL (0.0-1.3); Monocytes % 14.8 %; Neutrophils # 12.1 K/mcL (1.6-8.9); Platelet Count 192 K/mcL (140-400); Red Blood Count 4.86 M/mcL (4.19-5.50); Red Cell Distribution Width 13.2 % (11.5-14.5); Segmented Neutrophils % 77.2 %
[2016-12-20 05:19] LABS: Hemoglobin 13.9 g/dL (12.9-16.9)
[2016-12-20 05:38] LABS: Alanine Aminotransferase 12 Units/L (0-55); Albumin 2.9 g/dL (3.5-5.0); Albumin/Globulin Ratio 0.9 (1.1-2.2); Alkaline Phosphatase 73 Units/L (38-126); Aspartate Amino Transferase 13 Units/L (5-34); BUN/Creatinine Ratio 15 (6-26); Blood Urea Nitrogen 38 mg/dL (8-26); Calcium 8.3 mg/dL (8.6-10.8); Carbon Dioxide 23 mEq/L (19-29); Chloride 108 mEq/L (98-109); Globulin 3.3 g/dL (2.4-3.5); Glucose 111 mg/dL (70-99); Magnesium 2.2 mg/dL (1.6-2.6); Osmolality,Calculated 292 (280-300); Phosphorous 4.1 mg/dL (2.3-4.7); Potassium 4.9 mEq/L (3.5-4.5); Sodium 136 mEq/L (136-145); Total Protein 6.2 g/dL (6.0-8.3); eGFR For African Americans 32 (> 60); eGFR For Non-African Americans 27 (> 60)
[2016-12-20 05:44] LABS: Bilirubin,Total < 0.3 mg/dL (0.2-1.2)
[2016-12-20 05:45] LABS: Ionized Calcium 1.12 mmol/L (1.15-1.35)
[2016-12-20 06:39] LABS: ABG Base Excess -3.9 mEq/L (-2.0 to 3.0); ABG HCO3 24.1 mEQ/L (21-27); ABG Oxygen Saturation 95 % (95-98); ABG PCO2 55 mmHg (35-45); ABG PH 7.25 pH Units (7.32-7.45); ABG PO2 89 mmHg (85-104); ABG TCO2 25.8 mEq/L (20-26)
[2016-12-20 06:41] LABS: Blood Gas FiO2 60 %
--- NOTE | 2016-12-20 09:02 | Pulmonology Progress Note ---
<Monica Hager - Last Filed: 12/20/16 13:52> Date of Encounter: 12/20/16 Time of Encounter: 09:02 Assessment and Plan (1) Angio-edema Current Visit: Yes Status: Acute Patient presents with acute angioedema likely secondary to RITO inhibitor use. Patient is intubated to protect his airway. Lisinopril has been discontinued. The oropharyngeal edema is continuing to improve. Leukocytosis is also present. It is possibly secondary to stress and administration of steroids. We discontinued the steroids and continue H1 and H2 blockers. Continue to monitor the patient closely. Qualifiers: Encounter type: initial encounter Qualified Code(s): T78.3XXA - Angioneurotic edema, initial encounter (2) JOHNNY (acute kidney injury) Current Visit: Yes Status: Acute Oliguric acute kidney injury is likely secondary to hypotension and use of RITO inhibitor. Renal utrasound indicates no hydronephrosis. It is also read that there is either a parapelvic cyst or prominent renal pelvis in the left kidney. No evidence of a solid renal mass. BUN is at 38 and creatinine is at 2.48. Creatinine is trending down and patient is making urine. Patient has been given fluids with some improvement and output. Mild hyperkalemia is still present but it is trending down. Continue to follow this up with repeat electrolyte panel. (3) Hypertension Current Visit: Yes Status: Acute Patient has a history of severe hypertension and his blood pressure was very elevated when he presented to the ICU. His hypertension can be secondary to being paralyzed for intubation without sedation. He is currently on fentanyl and propofol sedation. Patient hypertension is currently controlled. Continue to monitor the patient closely. Qualifiers: Hypertension type: unspecified secondary hypertension Qualified Code(s): I15.9 - Secondary hypertension, unspecified; I15 - Secondary hypertension (4) COPD (chronic obstructive pulmonary disease) Current Visit: Yes Status: Acute Patient has underlying COPD and is currently a smoker. Patient is currently intubated for airway protection. No evidence of COPD exacerbation or pneumonia on chest x-ray. ABG still indicates respiratory acidosis but is improving. Last night, the patient had thick yellow sputum suctioned. The sputum was cultured and their preliminary read indicates the presence of many gram- negative coccobacilli. The patient is on Zosyn. Continue to monitor the patient closely. Qualifiers: COPD type: unspecified COPD Qualified Code(s): J44.9 - Chronic obstructive pulmonary disease, unspecified (5) Elevated glucose Current Visit: Yes Status: Acute Glucose is monitored. Continue to monitor the patient closely (6) DVT prophylaxis Current Visit: Yes Status: Acute Heparin was given for DVT prophylaxis. Objective PUL Vital signs: Last Vital Signs Temp 98.9 F 12/20/16 07:14 Pulse 91 12/20/16 06:00 Resp 15 12/20/16 07:35 BP 136/81 12/20/16 06:00 Pulse Ox 94 12/20/16 07:35 General appearance: no acute distress, alert, other (Patient is intubated and sedated) Eyes: nonicteric ENT: oropharynx moist, other (halitosis is present. Poor dentition.) Neck: supple, no lymphadenopathy, no JVD Effort: normal Auscultation: bilateral: clear Cardiovascular: regular rate and rhythm Gastrointestinal: normoactive bowel sounds, soft, non-tender, non-distended Extremities: no cyanosis, no edema, no clubbing, pink and warm, pulses normal normal mental status (Patient is intubated but follow commands and move all extremities.), pupils equal and round Ventilator Settings Ventilator Settings: Ventilator Settings, Last 8 Hours Ventilator Mode VC+ Ventilator Mode VC+ Ventilator Mode VC+ Ventilator Mode VC+ Ventilator Mode VC+ Ventilator Mode VC+ Ventilator Mode VC+ Ventilator Mode VC+ Ventilator Mode VC+ Ventilator Tidal Volume 550 Setting Ventilator Tidal Volume 550 Setting Ventilator Tidal Volume 550 Setting Ventilator Tidal Volume 550 Setting Ventilator Tidal Volume 550 Setting Ventilator Tidal Volume 550 Setting Ventilator Tidal Volume 550 Setting Ventilator Tidal Volume 550 Setting Ventilator Tidal Volume 550 Setting Ventilator Respiratory Rate 12 Setting Ventilator Respiratory Rate 12 Setting Ventilator Respiratory Rate 12 Setting Ventilator Respiratory Rate 12 Setting Ventilator Respiratory Rate 12 Setting Ventilator Respiratory Rate 12 Setting Ventilator Respiratory Rate 12 Setting Ventilator Respiratory Rate 12 Setting Ventilator Respiratory Rate 12 Setting Actual Respiratory Rate 15 Actual Respiratory Rate 14 Actual Respiratory Rate 14 Actual Respiratory Rate 14 Actual Respiratory Rate 20 Actual Respiratory Rate 18 Actual Respiratory Rate 12 Actual Respiratory Rate 16 Positive End Expiratory 5 Pressure Positive End Expiratory 5 Pressure Positive End Expiratory 5 Pressure Positive End Expiratory 5 Pressure Positive End Expiratory 5 Pressure Positive End Expiratory 5 Pressure Positive End Expiratory 5 Pressure Positive End Expiratory 5 Pressure Peak Inspiratory Airway 23 Pressure Peak Inspiratory Airway 23 Pressure Peak Inspiratory Airway 23 Pressure Peak Inspiratory Airway 21 Pressure Peak Inspiratory Airway 18 Pressure Peak Inspiratory Airway 20 Pressure Peak Inspiratory Airway 29 Pressure Peak Inspiratory Airway 21 Pressure Results - Laboratory Findings CBC and BMP: 12/20/16 05:05 12/20/16 05:05 ABG ABG pH 7.25 pH Units (7.32-7.45) L 12/20/16 06:25 ABG pCO2 55 mmHg (35-45) H 12/20/16 06:25 ABG pO2 89 mmHg (85-104) 12/20/16 06:25 ABG O2 Saturation 95 % (95-98) 12/20/16 06:25 PT/INR, D-dimer PT 11.6 Seconds (9.4-12.1) 12/18/16 12:15 Abnormal lab findings: Abnormal lab results WBC 15.6 K/mcL (4.3-11.1) H 12/20/16 05:05 Neutrophils # 12.1 K/mcL (1.6-8.9) H 12/20/16 05:05 Monocytes # 2.3 K/mcL (0.0-1.3) H 12/20/16 05:05 ABG pH 7.25 pH Units (7.32-7.45) L 12/20/16 06:25 ABG pCO2 55 mmHg (35-45) H 12/20/16 06:25 ABG Base Excess -3.9 mEq/L (-2.0 to 3.0) L 12/20/16 06:25 Potassium 4.9 mEq/L (3.5-4.5) H 12/20/16 05:05 BUN 38 mg/dL (8-26) H 12/20/16 05:05 Creatinine 2.48 mg/dL (0.72-1.25) H 12/20/16 05:05 Est GFR ( Amer) 32 (> 60) L 12/20/16 05:05 Est GFR (Non-Af Amer) 27 (> 60) L 12/20/16 05:05 Glucose 111 mg/dL (70-99) H 12/20/16 05:05 POC Glucose 104 (58-89) H 12/20/16 05:39 Calcium 8.3 mg/dL (8.6-10.8) L 12/20/16 05:05 Ionized Calcium 1.12 mmol/L (1.15-1.35) L 12/20/16 05:05 Albumin 2.9 g/dL (3.5-5.0) L 12/20/16 05:05 Albumin/Globulin Ratio 0.9 (1.1-2.2) L 12/20/16 05:05 - Microbiology Findings Microbiology Findings: Microbiology, Last 48 Hours 12/20/16 04:10 Sputum Culture - Preliminary Sputum - Clinical Findings Intake & Output: Intake & Output 12/19/16 12/20/16 12/20/16 23:59 07:59 15:59 Intake Total 1322.5 / 1322.5 1237.5 / 1237.5 Output Total 675 / 675 925 / 925 Balance 647.5 / 647.5 312.5 / 312.5 Weight 91.217 kg Consult Discharge Plan - Plan Referrals: Jj Hathaway DO [Primary Care Provider] - <Anuel Pratt - Last Filed: 12/20/16 14:22> Date of Encounter: 12/20/16 Objective PUL Vital signs: Last Vital Signs Temp 98.9 F 12/20/16 07:14 Pulse 82 12/20/16 13:27 Resp 14 12/20/16 13:27 BP 125/77 12/20/16 13:27 Pulse Ox 93 12/20/16 13:27 Ventilator Settings Ventilator Settings: Ventilator Settings, Last 8 Hours Ventilator Mode VC+ Ventilator Mode VC+ Ventilator Mode VC+ Ventilator Mode VC+ Ventilator Mode VC+ Ventilator Mode VC+ Ventilator Mode VC+ Ventilator Mode VC+ Ventilator Mode VC+ Ventilator Tidal Volume 550 Setting Ventilator Tidal Volume 550 Setting Ventilator Tidal Volume 550 Setting Ventilator Tidal Volume 550 Setting Ventilator Tidal Volume 550 Setting Ventilator Tidal Volume 550 Setting Ventilator Tidal Volume 550 Setting Ventilator Tidal Volume 550 Setting Ventilator Tidal Volume 550 Setting Ventilator Respiratory Rate 12 Setting Ventilator Respiratory Rate 12 Setting Ventilator Respiratory Rate 12 Setting Ventilator Respiratory Rate 12 Setting Ventilator Respiratory Rate 12 Setting Ventilator Respiratory Rate 12 Setting Ventilator Respiratory Rate 12 Setting Ventilator Respiratory Rate 12 Setting Ventilator Respiratory Rate 12 Setting Actual Respiratory Rate 15 Actual Respiratory Rate 12 Actual Respiratory Rate 14 Actual Respiratory Rate 14 Actual Respiratory Rate 17 Actual Respiratory Rate 16 Actual Respiratory Rate 15 Actual Respiratory Rate 16 Positive End Expiratory 5 Pressure Positive End Expiratory 5 Pressure Positive End Expiratory 5 Pressure Positive End Expiratory 5 Pressure Positive End Expiratory 5 Pressure Positive End Expiratory 5 Pressure Positive End Expiratory 5 Pressure Positive End Expiratory 5 Pressure Positive End Expiratory 5 Pressure Peak Inspiratory Airway 20 Pressure Peak Inspiratory Airway 22 Pressure Peak Inspiratory Airway 23 Pressure Peak Inspiratory Airway 22 Pressure Peak Inspiratory Airway 14 Pressure Peak Inspiratory Airway 14 Pressure Peak Inspiratory Airway 21 Pressure Peak Inspiratory Airway 20 Pressure Peak Inspiratory Airway 23 Pressure Peak Inspiratory Airway 20 Pressure Results - Laboratory Findings CBC and BMP: 12/20/16 05:05 12/20/16 05:05 ABG ABG pH 7.25 pH Units (7.32-7.45) L 12/20/16 06:25 ABG pCO2 55 mmHg (35-45) H 12/20/16 06:25 ABG pO2 89 mmHg (85-104) 12/20/16 06:25 ABG O2 Saturation 95 % (95-98) 12/20/16 06:25 PT/INR, D-dimer PT 11.6 Seconds (9.4-12.1) 12/18/16 12:15 Abnormal lab findings: Abnormal lab results WBC 15.6 K/mcL (4.3-11.1) H 12/20/16 05:05 Neutrophils # 12.1 K/mcL (1.6-8.9) H 12/20/16 05:05 Monocytes # 2.3 K/mcL (0.0-1.3) H 12/20/16 05:05 ABG pH 7.25 pH Units (7.32-7.45) L 12/20/16 06:25 ABG pCO2 55 mmHg (35-45) H 12/20/16 06:25 ABG Base Excess -3.9 mEq/L (-2.0 to 3.0) L 12/20/16 06:25 Potassium 4.9 mEq/L (3.5-4.5) H 12/20/16 05:05 BUN 38 mg/dL (8-26) H 12/20/16 05:05 Creatinine 2.48 mg/dL (0.72-1.25) H 12/20/16 05:05 Est GFR ( Amer) 32 (> 60) L 12/20/16 05:05 Est GFR (Non-Af Amer) 27 (> 60) L 12/20/16 05:05 Glucose 111 mg/dL (70-99) H 12/20/16 05:05 POC Glucose 120 (58-89) H 12/20/16 12:22 Calcium 8.3 mg/dL (8.6-10.8) L 12/20/16 05:05 Ionized Calcium 1.12 mmol/L (1.15-1.35) L 12/20/16 05:05 Albumin 2.9 g/dL (3.5-5.0) L 12/20/16 05:05 Albumin/Globulin Ratio 0.9 (1.1-2.2) L 12/20/16 05:05 - Microbiology Findings Microbiology Findings: Microbiology, Last 48 Hours 12/20/16 04:10 Sputum Culture - Preliminary Sputum - Clinical Findings Intake & Output: Intake & Output 12/19/16 12/20/16 12/20/16 23:59 07:59 15:59 Intake Total 1322.5 / 1322.5 1237.5 / 1237.5 1100 / 1100 Output Total 675 / 675 925 / 925 Balance 647.5 / 647.5 312.5 / 312.5 1100 / 1100 Weight 91.217 kg - Attending Attestation I examined this patient and my medical decision-making was reviewed with the Resident Physician. I agree with the documented findings, disposition and treatment plan as described except to the extent set forth below. Patient seen and examined at bedside Labs, radiology, chart personally reviewed. All lines examined without evidence of infection. Management was reviewed during multidisciplinary critical care rounds. Neuropsych: Patient is sedated comfortably on vent but is able to open his eyes and follow commands without focal neurological deficit continue daily sedation holiday Pulm: Intubated for airway protection secondary to RITO inhibitor induced angioedema he had a small cuff leak today swelling is improving likely remain on ventilator today. 6 mucoid secretions are being suctioned from the endotracheal tube which is concerning for pneumonia he will be started on antimicrobial coverage including broad anaerobic coverage given poor dentition and foul-smelling oral pharynx; stop steroids today continue bronchodilators Cards: Blood pressure controlled continue to monitor FEN-GI: Nothing by mouth for now GI prophylaxis given Renal: Acute kidney injury secondary to hypotension and RITO inhibitor use this is improving hyperkalemia is also resolved ID: Started antimicrobial coverage for presumed pneumonia cultures pending Heme/Onc: DVT prophylaxis given Endo: Blood glucose monitored Integ/MSK: Skin care per routine ICU protocol to prevent ulcers CODE: Full code
[2016-12-20] MEDS: Chlorhexidine Rinse 15 ML MOUTHWASH MM SCH ×2 (09:37→20:49)
[2016-12-20] MEDS: Piperacillin/Tazobactam 3.375 GM in D5% in Water (Mini-Bag+) 100 ML IVPB SCH (18:10)
[2016-12-21] MEDS: Insulin LISPRO 300 UNITS/3 ML VIAL SQ SCH ×4 (00:23→17:51)
[2016-12-21] MEDS: Lacri-Lube 3.5 GM TUBE BOTH EYES SCH ×6 (00:23→20:12)
[2016-12-21] MEDS: Ipratropium/Albuterol Neb 3 ML IH SCH ×7 (00:48→23:38)
[2016-12-21] MEDS: FentaNYL (PF) 3,000 MCG in 0.9 % Sodium Chloride 240 ML IVC SCH ×2 (02:45→21:03)
[2016-12-21 04:16] LABS: Hematocrit 38.7 % (37.5-50.1); Hemoglobin 12.5 g/dL (12.9-16.9); Mean Corpuscular HGB Conc 32.3 g/dL (31.6-35.5); Mean Corpuscular Hemoglobin 29.6 pg (28.0-33.3); Mean Corpuscular Volume 91.7 fL (83.0-100.0); Mean Platelet Volume 11.2 fL (9.4-12.4); Platelet Count 157 K/mcL (140-400); Red Blood Count 4.22 M/mcL (4.19-5.50); Red Cell Distribution Width 13.6 % (11.5-14.5)
[2016-12-21 04:28] LABS: Ionized Calcium 1.14 mmol/L (1.15-1.35)
[2016-12-21 04:30] LABS: ABG Oxygen Saturation 92 % (95-98); ABG PCO2 58 mmHg (35-45); ABG PH 7.26 pH Units (7.32-7.45); ABG PO2 72 mmHg (85-104); ABG TCO2 27.8 mEq/L (20-26)
[2016-12-21 04:31] LABS: Blood Gas FiO2 50 %; Blood Gas PEEP 5 cm H2O; Blood Gas Respiration Rate 12; Blood Gas VT 550 cc
[2016-12-21 04:38] LABS: Albumin 2.4 g/dL (3.5-5.0); Albumin/Globulin Ratio 0.7 (1.1-2.2); Bilirubin,Total 0.3 mg/dL (0.2-1.2); Calcium 8.2 mg/dL (8.6-10.8); Globulin 3.6 g/dL (2.4-3.5); Potassium 4.5 mEq/L (3.5-4.5)
[2016-12-21 04:56] LABS: Lymphocytes # 1.2 K/mcL (0.6-4.6); Monocytes # 1.5 K/mcL (0.0-1.3); Neutrophils # 9.4 K/mcL (1.6-8.9); Platelet Estimate Normal (Normal); Reactive Lymphocytes Present (Not Present); Smudge Cells Present (Not Present)
[2016-12-21 05:18] LABS: Magnesium 2.3 mg/dL (1.6-2.6); Phosphorous 2.3 mg/dL (2.3-4.7)
[2016-12-21] MEDS: 0.9 % Sodium Chloride 1,000 ML IVC SCH ×2 (05:31→15:33)
[2016-12-21] MEDS: *HR* Heparin 5,000 UNIT/ML VIAL SQ SCH ×3 (05:31→20:12)
[2016-12-21] MEDS: Famotidine 20 MG/2 ML VIAL IVP SCH ×2 (05:31→17:59)
[2016-12-21] MEDS: Piperacillin/Tazobactam 3.375 GM in D5% in Water (Mini-Bag+) 100 ML IVPB SCH ×3 (05:32→20:14)
[2016-12-21] MEDS: Sodium Phosphate 30 MMOL in D5% in Water 100 ML IVPB PRN (06:31)
--- NOTE | 2016-12-21 08:00 | Pulmonology Progress Note ---
<TerenceAnuel W - Last Filed: 12/21/16 14:01> Date of Encounter: 12/21/16 Objective PUL Vital signs: Last Vital Signs Temp 97.9 F 12/21/16 12:08 Pulse 84 12/21/16 12:00 Resp 21 12/21/16 12:00 BP 147/84 12/21/16 12:00 Pulse Ox 93 12/21/16 12:00 Ventilator Settings Ventilator Settings: Ventilator Settings, Last 8 Hours Ventilator Mode VC+ Ventilator Mode VC+ Ventilator Mode VC+ Ventilator Mode VC+ Ventilator Mode VC+ Ventilator Tidal Volume 550 Setting Ventilator Tidal Volume 550 Setting Ventilator Tidal Volume 550 Setting Ventilator Tidal Volume 550 Setting Ventilator Tidal Volume 550 Setting Ventilator Respiratory Rate 12 Setting Ventilator Respiratory Rate 12 Setting Ventilator Respiratory Rate 12 Setting Ventilator Respiratory Rate 12 Setting Ventilator Respiratory Rate 12 Setting Actual Respiratory Rate 18 Actual Respiratory Rate 15 Actual Respiratory Rate 13 Actual Respiratory Rate 12 Actual Respiratory Rate 13 Positive End Expiratory 5 Pressure Positive End Expiratory 5 Pressure Positive End Expiratory 5 Pressure Positive End Expiratory 5 Pressure Positive End Expiratory 5 Pressure Peak Inspiratory Airway 20 Pressure Peak Inspiratory Airway 23 Pressure Peak Inspiratory Airway 22 Pressure Peak Inspiratory Airway 20 Pressure Peak Inspiratory Airway 19 Pressure Results - Laboratory Findings CBC and BMP: 12/21/16 04:04 12/21/16 04:04 ABG ABG pH 7.26 pH Units (7.32-7.45) L 12/21/16 04:16 ABG pCO2 58 mmHg (35-45) H 12/21/16 04:16 ABG pO2 72 mmHg (85-104) L 12/21/16 04:16 ABG O2 Saturation 92 % (95-98) L 12/21/16 04:16 PT/INR, D-dimer PT 11.6 Seconds (9.4-12.1) 12/18/16 12:15 Abnormal lab findings: Abnormal lab results WBC 12.1 K/mcL (4.3-11.1) H 12/21/16 04:04 Hgb 12.5 g/dL (12.9-16.9) L 12/21/16 04:04 Band Neutrophils % 18.0 % (0-4) H 12/21/16 04:04 Neutrophils # 9.4 K/mcL (1.6-8.9) H 12/21/16 04:04 Monocytes # 1.5 K/mcL (0.0-1.3) H 12/21/16 04:04 Reactive Lymphocytes Present (Not Present) A 12/21/16 04:04 Smudge Cells Present (Not Present) A 12/21/16 04:04 ABG pH 7.26 pH Units (7.32-7.45) L 12/21/16 04:16 ABG pCO2 58 mmHg (35-45) H 12/21/16 04:16 ABG pO2 72 mmHg (85-104) L 12/21/16 04:16 ABG Total CO2 27.8 mEq/L (20-26) H 12/21/16 04:16 ABG O2 Saturation 92 % (95-98) L 12/21/16 04:16 Chloride 110 mEq/L (98-109) H 12/21/16 04:04 BUN 42 mg/dL (8-26) H 12/21/16 04:04 Creatinine 1.98 mg/dL (0.72-1.25) H 12/21/16 04:04 Est GFR ( Amer) 42 (> 60) L 12/21/16 04:04 Est GFR (Non-Af Amer) 35 (> 60) L 12/21/16 04:04 Glucose 103 mg/dL (70-99) H 12/21/16 04:04 Calcium 8.2 mg/dL (8.6-10.8) L 12/21/16 04:04 Ionized Calcium 1.14 mmol/L (1.15-1.35) L 12/21/16 04:04 Albumin 2.4 g/dL (3.5-5.0) L 12/21/16 04:04 Globulin 3.6 g/dL (2.4-3.5) H 12/21/16 04:04 Albumin/Globulin Ratio 0.7 (1.1-2.2) L 12/21/16 04:04 - Microbiology Findings Microbiology Findings: Microbiology, Last 48 Hours 12/20/16 04:10 Sputum Culture - Preliminary Sputum Gram Negative Vinay Gram Negative Coccobacilli - Clinical Findings Intake & Output: Intake & Output 12/20/16 12/21/16 12/21/16 23:59 07:59 15:59 Intake Total 1300 / 1300 1502 / 1502 212 / 212 Output Total 550 / 550 675 / 675 200 / 200 Balance 750 / 750 827 / 827 Weight 95.3 kg Consult Discharge Plan - Plan Referrals: Jj Hathaway DO [Primary Care Provider] - - Attending Attestation I examined this patient and my medical decision-making was reviewed with the Resident Physician. I agree with the documented findings, disposition and treatment plan as described except to the extent set forth below. Patient seen and examined at bedside Labs, radiology, chart personally reviewed. All lines examined without evidence of infection. Management was reviewed during multidisciplinary critical care rounds. Neuropsych: Sedated on vent disappears and agitation were starting Precedex wean propofol and narcotic infusion in preparation of liberation continue daily sedation holiday Pulm: Intubated for airway protection from RITO inhibitor induced angioedema which is resolving cuff leak present today appears the patient has developed pneumonia while on the ventilator which is being treated with antimicrobials he is requiring minimal ventilatory support with acceptable oxygenation and ventilation Cards: History of hypertension currently controlled continue to monitor FEN-GI: Nothing by mouth for now; continue PPI prophylaxis Renal: JOHNNY improving excellent urine output now continue to follow ID: Suspect pneumonia he has gram-negative coccobacilli in the sputum he is being treated for aspiration organisms with Zosyn de-escalate based upon culture sensitivities Heme/Onc: DVT prophylaxis given Endo: Glucose monitored Integ/MSK: Skin care per routine to prevent ulcers CODE: Full code <Monica Hager - Last Filed: 12/21/16 16:50> Date of Encounter: 12/21/16 Time of Encounter: 11:09 Assessment and Plan (1) Angio-edema Current Visit: Yes Status: Acute Patient presents with acute angioedema likely secondary to RITO inhibitor use. Patient is intubated and sedated. The plan is to wean the patient off of propofol and fentanyl and start on Precedex. The oropharyngeal edema is still improving. Attempted to CPAP this morning for 23 minutes. The patient failed CPAP due to agitation. Benadryl was discontinued today. Continue H1 and H2 blockers. Continued DVT prophylaxis and GI prophylaxis. Continue to monitor the patient closely. Qualifiers: Encounter type: initial encounter Qualified Code(s): T78.3XXA - Angioneurotic edema, initial encounter (2) JOHNNY (acute kidney injury) Current Visit: Yes Status: Acute Acute kidney injury is likely secondary to hypotension and use of RITO inhibitor. Renal utrasound indicates no hydronephrosis. Creatinine is trending down and patient is making good urine output. Mild hyperkalemia is resolved in today potassium is at 4.5. Continue to follow this up with repeat electrolyte panel. Continue to monitor the patient closely (3) COPD (chronic obstructive pulmonary disease) Current Visit: Yes Status: Acute Patient has underlying COPD and is currently a smoker. Patient is currently intubated for airway protection. No evidence of COPD exacerbation on chest x- ray. However, sputum culture and chest x-ray indicate pneumonia. ABG still indicates respiratory acidosis but is improving. Last night, the patient had an elevated temperature above 100F. Blood in urine cultures is still pending The sputum was cultured and their preliminary read indicates the presence of many gram-negative coccobacilli. The patient is on Zosyn. Continue to monitor the patient closely. Qualifiers: COPD type: unspecified COPD Qualified Code(s): J44.9 - Chronic obstructive pulmonary disease, unspecified (4) Ventilator-associated bacterial pneumonia Current Visit: Yes Status: Acute It appears to patient developed pneumonia possibly secondary to being on the ventilator. Chest x-ray shows possible pneumonia and preliminary read on sputum culture was positive for gram-negative cocci bacilli and gram-negative vinay. Patient is currently on Zosyn. Leukocytosis is improving. Current white blood count is at 12.1 compared to yesterday at 15.6. Continue to monitor the patient closely. (5) Hypertension Current Visit: Yes Status: Acute Patient has a history of severe hypertension. Patient hypertension is currently controlled. Continue to monitor the patient closely. Qualifiers: Hypertension type: unspecified secondary hypertension Qualified Code(s): I15.9 - Secondary hypertension, unspecified; I15 - Secondary hypertension (6) Elevated glucose Current Visit: Yes Status: Acute Glucose is monitored. Continue to monitor the patient closely (7) DVT prophylaxis Current Visit: Yes Status: Acute Heparin was given for DVT prophylaxis. Objective PUL Vital signs: Last Vital Signs Temp 98.1 F 12/21/16 07:30 Pulse 74 12/21/16 07:46 Resp 13 12/21/16 07:00 BP 89/58 12/21/16 07:00 Pulse Ox 95 12/21/16 07:00 General appearance: no acute distress, alert, other (Patient is intubated and sedated.) Eyes: nonicteric ENT: other (Patient is intubated and sedated. Patient lips and tongue have decreased in swelling since admission. Angioedema is improving.) Neck: supple, no lymphadenopathy, no JVD Effort: normal Auscultation: bilateral: wheezes (bilateral wheezes in the upper lobes anteriorly) Cardiovascular: regular rate and rhythm Gastrointestinal: normoactive bowel sounds, soft, non-tender, non-distended Integumentary: normal Extremities: pulses normal (distal pulses bilaterall +1/4. Radial pulses bilaterally +2/4), cool (bilateral feet are cool to the touch. distal pulses +1/ 4. ) Musculoskeletal: no deformities other (Patients did not be deleted. Patient follow commands when he is awake.) Ventilator Settings Ventilator Settings: Ventilator Settings, Last 8 Hours Ventilator Mode VC+ Ventilator Mode VC+ Ventilator Mode CPAP Ventilator Mode VC+ Ventilator Mode VC+ Ventilator Mode VC+ Ventilator Mode VC+ Ventilator Mode VC+ Ventilator Mode VC+ Ventilator Mode VC+ Ventilator Mode VC+ Ventilator Mode VC+ Ventilator Mode VC+ Ventilator Tidal Volume 550 Setting Ventilator Tidal Volume 550 Setting Ventilator Tidal Volume 550 Setting Ventilator Tidal Volume 550 Setting Ventilator Tidal Volume 550 Setting Ventilator Tidal Volume 550 Setting Ventilator Tidal Volume 550 Setting Ventilator Tidal Volume 550 Setting Ventilator Tidal Volume 550 Setting Ventilator Tidal Volume 550 Setting Ventilator Tidal Volume 550 Setting Ventilator Tidal Volume 550 Setting Ventilator Respiratory Rate 12 Setting Ventilator Respiratory Rate 12 Setting Ventilator Respiratory Rate 12 Setting Ventilator Respiratory Rate 12 Setting Ventilator Respiratory Rate 12 Setting Ventilator Respiratory Rate 12 Setting Ventilator Respiratory Rate 12 Setting Ventilator Respiratory Rate 12 Setting Ventilator Respiratory Rate 12 Setting Ventilator Respiratory Rate 12 Setting Ventilator Respiratory Rate 12 Setting Ventilator Respiratory Rate 12 Setting Actual Respiratory Rate 13 Actual Respiratory Rate 17 Actual Respiratory Rate 11 Actual Respiratory Rate 15 Actual Respiratory Rate 12 Actual Respiratory Rate 12 Actual Respiratory Rate 13 Actual Respiratory Rate 15 Actual Respiratory Rate 15 Actual Respiratory Rate 15 Actual Respiratory Rate 15 Actual Respiratory Rate 15 Positive End Expiratory 5 Pressure Positive End Expiratory 5 Pressure Positive End Expiratory 5 Pressure Positive End Expiratory 5 Pressure Positive End Expiratory 5 Pressure Positive End Expiratory 5 Pressure Positive End Expiratory 5 Pressure Positive End Expiratory 5 Pressure Positive End Expiratory 5 Pressure Positive End Expiratory 5 Pressure Positive End Expiratory 5 Pressure Positive End Expiratory 5 Pressure Positive End Expiratory 5 Pressure Peak Inspiratory Airway 19 Pressure Peak Inspiratory Airway 22 Pressure Peak Inspiratory Airway 11 Pressure Peak Inspiratory Airway 22 Pressure Peak Inspiratory Airway 21 Pressure Peak Inspiratory Airway 26 Pressure Peak Inspiratory Airway 22 Pressure Peak Inspiratory Airway 23 Pressure Peak Inspiratory Airway 21 Pressure Peak Inspiratory Airway 25 Pressure Peak Inspiratory Airway 34 Pressure Peak Inspiratory Airway 23 Pressure Results - Laboratory Findings CBC and BMP: 12/21/16 04:04 12/21/16 04:04 ABG ABG pH 7.26 pH Units (7.32-7.45) L 12/21/16 04:16 ABG pCO2 58 mmHg (35-45) H 12/21/16 04:16 ABG pO2 72 mmHg (85-104) L 12/21/16 04:16 ABG O2 Saturation 92 % (95-98) L 12/21/16 04:16 PT/INR, D-dimer PT 11.6 Seconds (9.4-12.1) 12/18/16 12:15 Abnormal lab findings: Abnormal lab results WBC 12.1 K/mcL (4.3-11.1) H 12/21/16 04:04 Hgb 12.5 g/dL (12.9-16.9) L 12/21/16 04:04 Band Neutrophils % 18.0 % (0-4) H 12/21/16 04:04 Neutrophils # 9.4 K/mcL (1.6-8.9) H 12/21/16 04:04 Monocytes # 1.5 K/mcL (0.0-1.3) H 12/21/16 04:04 Reactive Lymphocytes Present (Not Present) A 12/21/16 04:04 Smudge Cells Present (Not Present) A 12/21/16 04:04 ABG pH 7.26 pH Units (7.32-7.45) L 12/21/16 04:16 ABG pCO2 58 mmHg (35-45) H 12/21/16 04:16 ABG pO2 72 mmHg (85-104) L 12/21/16 04:16 ABG Total CO2 27.8 mEq/L (20-26) H 12/21/16 04:16 ABG O2 Saturation 92 % (95-98) L 12/21/16 04:16 Chloride 110 mEq/L (98-109) H 12/21/16 04:04 BUN 42 mg/dL (8-26) H 12/21/16 04:04 Creatinine 1.98 mg/dL (0.72-1.25) H 12/21/16 04:04 Est GFR ( Amer) 42 (> 60) L 12/21/16 04:04 Est GFR (Non-Af Amer) 35 (> 60) L 12/21/16 04:04 Glucose 103 mg/dL (70-99) H 12/21/16 04:04 Calcium 8.2 mg/dL (8.6-10.8) L 12/21/16 04:04 Ionized Calcium 1.14 mmol/L (1.15-1.35) L 12/21/16 04:04 Albumin 2.4 g/dL (3.5-5.0) L 12/21/16 04:04 Globulin 3.6 g/dL (2.4-3.5) H 12/21/16 04:04 Albumin/Globulin Ratio 0.7 (1.1-2.2) L 12/21/16 04:04 - Microbiology Findings Microbiology Findings: Microbiology, Last 48 Hours 12/20/16 04:10 Sputum Culture - Preliminary Sputum Gram Negative Vinay Gram Negative Coccobacilli - Clinical Findings Intake & Output: Intake & Output 12/20/16 12/20/16 12/21/16 15:59 23:59 07:59 Intake Total 1305 / 1305 1300 / 1300 1502 / 1502 Output Total 550 / 550 675 / 675 Balance 1305 / 1305 750 / 750 827 / 827 Weight 95.3 kg
[2016-12-21] MEDS: Chlorhexidine Rinse 15 ML MOUTHWASH MM SCH ×2 (08:07→20:12)
[2016-12-21] MEDS: Dexmedetomidine HCl 400 MCG/100 ML MLS IVC SCH ×2 (08:16→17:51)
[2016-12-21 15:08] LABS: Total Volume 24 Hour,Urine 1.53 Liters (0.80-1.80)
[2016-12-21 15:13] LABS: Creatinine 24 Hour,Urine 2.37 g/day (0.71-1.65)
[2016-12-22] MEDS: Insulin LISPRO 300 UNITS/3 ML VIAL SQ SCH ×4 (00:28→17:49)
[2016-12-22] MEDS: Lacri-Lube 3.5 GM TUBE BOTH EYES SCH ×6 (00:29→21:58)
[2016-12-22] MEDS: 0.9 % Sodium Chloride 1,000 ML IVC SCH (00:46)
[2016-12-22 03:39] LABS: Basophils % 0.2 %; Eosinophils # 0.1 K/mcL (0.0-0.6); Eosinophils % 0.7 %; Hematocrit 35.2 % (37.5-50.1); Hemoglobin 11.1 g/dL (12.9-16.9); Immature Granulocytes % 0.5 % (0-4); Lymphocytes # 1.1 K/mcL (0.6-4.6); Lymphocytes % 11.1 %; Mean Corpuscular HGB Conc 31.5 g/dL (31.6-35.5); Mean Corpuscular Hemoglobin 28.8 pg (28.0-33.3); Mean Corpuscular Volume 91.2 fL (83.0-100.0); Mean Platelet Volume 10.5 fL (9.4-12.4); Monocytes # 1.3 K/mcL (0.0-1.3); Monocytes % 12.6 %; Neutrophils # 7.5 K/mcL (1.6-8.9); Platelet Count 159 K/mcL (140-400); Red Blood Count 3.86 M/mcL (4.19-5.50); Red Cell Distribution Width 13.6 % (11.5-14.5); Segmented Neutrophils % 74.9 %
[2016-12-22 03:53] LABS: Magnesium 2.3 mg/dL (1.6-2.6); Phosphorous 2.7 mg/dL (2.3-4.7)
[2016-12-22 03:57] LABS: Albumin 2.1 g/dL (3.5-5.0); Albumin/Globulin Ratio 0.7 (1.1-2.2); Bilirubin,Total 0.3 mg/dL (0.2-1.2); Calcium 8.1 mg/dL (8.6-10.8); Globulin 3.2 g/dL (2.4-3.5); Potassium 4.4 mEq/L (3.5-4.5); Total Protein 5.3 g/dL (6.0-8.3)
[2016-12-22 04:04] LABS: Ionized Calcium 1.14 mmol/L (1.15-1.35)
[2016-12-22 04:15] LABS: Platelet Estimate Normal (Normal)
[2016-12-22 05:37] LABS: ABG Base Excess -0.8 mEq/L (-2.0 to 3.0); ABG HCO3 25.8 mEQ/L (21-27); ABG Oxygen Saturation 98 % (95-98); ABG PCO2 50 mmHg (35-45); ABG PH 7.32 pH Units (7.32-7.45); ABG PO2 106 mmHg (85-104); ABG TCO2 27.3 mEq/L (20-26)
[2016-12-22 05:38] LABS: Blood Gas FiO2 50 %
[2016-12-22] MEDS: Piperacillin/Tazobactam 3.375 GM in D5% in Water (Mini-Bag+) 100 ML IVPB SCH (05:51)
[2016-12-22] MEDS: *HR* Heparin 5,000 UNIT/ML VIAL SQ SCH ×3 (05:52→21:21)
[2016-12-22] MEDS: Famotidine 20 MG/2 ML VIAL IVP SCH ×2 (05:52→17:58)
[2016-12-22] MEDS: Ipratropium/Albuterol Neb 3 ML IH SCH ×5 (05:55→20:32)
[2016-12-22] MEDS: Sodium Phosphate 30 MMOL in D5% in Water 100 ML IVPB PRN (06:00)
[2016-12-22] MEDS ORDERED: *HR* Metoprolol 5 MG/5 ML VIAL IVP ONE ×2 (07:47→08:00)
[2016-12-22] MEDS: Chlorhexidine Rinse 15 ML MOUTHWASH MM SCH ×2 (08:41→21:21)
[2016-12-22] MEDS: *HR* LORazepam 2 MG/ML VIAL IVP PRN ×2 (08:44→21:21)
[2016-12-22] MEDS ORDERED: Furosemide 40 MG/4 ML VIAL IVP ONE (08:57)
[2016-12-22] MEDS ORDERED: MethylPREDNISolone 40 MG/ML VIAL IVP ONE (08:59)
[2016-12-22] MEDS ORDERED: Furosemide 20 MG/2 ML VIAL IVP ONE (09:03)
[2016-12-22] MEDS ORDERED: MethylPREDNISolone 40 MG/ML VIAL ONE (09:03)
--- NOTE | 2016-12-22 10:45 | Pulmonology Progress Note ---
<TerenceAnuel W - Last Filed: 12/22/16 10:53> Date of Encounter: 12/22/16 Objective PUL Vital signs: Last Vital Signs Temp 99.2 F 12/22/16 08:00 Pulse 86 12/22/16 09:00 Resp 16 12/22/16 09:07 BP 185/100 12/22/16 09:15 Pulse Ox 96 12/22/16 09:15 Ventilator Settings Ventilator Settings: Ventilator Settings, Last 8 Hours Ventilator Mode CPAP Ventilator Mode VC+ Ventilator Mode CPAP Ventilator Mode VC+ Ventilator Mode VC+ Ventilator Mode VC+ Ventilator Mode VC+ Ventilator Mode VC+ Ventilator Mode VC+ Ventilator Tidal Volume 550 Setting Ventilator Tidal Volume 550 Setting Ventilator Tidal Volume 550 Setting Ventilator Tidal Volume 550 Setting Ventilator Tidal Volume 550 Setting Ventilator Tidal Volume 550 Setting Ventilator Tidal Volume 550 Setting Ventilator Respiratory Rate 12 Setting Ventilator Respiratory Rate 12 Setting Ventilator Respiratory Rate 12 Setting Ventilator Respiratory Rate 12 Setting Ventilator Respiratory Rate 12 Setting Ventilator Respiratory Rate 12 Setting Ventilator Respiratory Rate 12 Setting Actual Respiratory Rate 16 Actual Respiratory Rate 18 Actual Respiratory Rate 15 Actual Respiratory Rate 16 Actual Respiratory Rate 15 Actual Respiratory Rate 17 Actual Respiratory Rate 16 Actual Respiratory Rate 17 Positive End Expiratory 5 Pressure Positive End Expiratory 5 Pressure Positive End Expiratory 5 Pressure Positive End Expiratory 5 Pressure Positive End Expiratory 5 Pressure Positive End Expiratory 5 Pressure Positive End Expiratory 5 Pressure Positive End Expiratory 5 Pressure Positive End Expiratory 5 Pressure Peak Inspiratory Airway 11 Pressure Peak Inspiratory Airway 19 Pressure Peak Inspiratory Airway 11 Pressure Peak Inspiratory Airway 20 Pressure Peak Inspiratory Airway 17 Pressure Peak Inspiratory Airway 19 Pressure Peak Inspiratory Airway 13 Pressure Peak Inspiratory Airway 16 Pressure Results - Laboratory Findings CBC and BMP: 12/22/16 03:00 12/22/16 03:00 ABG ABG pH 7.32 pH Units (7.32-7.45) 12/22/16 05:25 ABG pCO2 50 mmHg (35-45) H 12/22/16 05:25 ABG pO2 106 mmHg (85-104) H 12/22/16 05:25 ABG O2 Saturation 98 % (95-98) 12/22/16 05:25 PT/INR, D-dimer PT 11.6 Seconds (9.4-12.1) 12/18/16 12:15 Abnormal lab findings: Abnormal lab results RBC 3.86 M/mcL (4.19-5.50) L 12/22/16 03:00 Hgb 11.1 g/dL (12.9-16.9) L 12/22/16 03:00 Hct 35.2 % (37.5-50.1) L 12/22/16 03:00 MCHC 31.5 g/dL (31.6-35.5) L 12/22/16 03:00 Band Neutrophils % 18.0 % (0-4) H 12/21/16 04:04 Reactive Lymphocytes Present (Not Present) A 12/21/16 04:04 Smudge Cells Present (Not Present) A 12/21/16 04:04 ABG pCO2 50 mmHg (35-45) H 12/22/16 05:25 ABG pO2 106 mmHg (85-104) H 12/22/16 05:25 ABG Total CO2 27.3 mEq/L (20-26) H 12/22/16 05:25 Chloride 112 mEq/L (98-109) H 12/22/16 03:00 BUN 38 mg/dL (8-26) H 12/22/16 03:00 Creatinine 1.60 mg/dL (0.72-1.25) H 12/22/16 03:00 Est GFR ( Amer) 54 (> 60) L 12/22/16 03:00 Est GFR (Non-Af Amer) 44 (> 60) L 12/22/16 03:00 Calcium 8.1 mg/dL (8.6-10.8) L 12/22/16 03:00 Ionized Calcium 1.14 mmol/L (1.15-1.35) L 12/22/16 03:00 Serum Total Protein 5.3 g/dL (6.0-8.3) L 12/22/16 03:00 Albumin 2.1 g/dL (3.5-5.0) L 12/22/16 03:00 Albumin/Globulin Ratio 0.7 (1.1-2.2) L 12/22/16 03:00 Ur Creatinine 24 Hour 2.37 g/day (0.71-1.65) H 12/19/16 11:00 - Microbiology Findings Microbiology Findings: Microbiology, Last 48 Hours 12/20/16 22:44 Blood Culture - Preliminary Peripheral Venipuncture No growth. 12/20/16 22:43 Blood Culture - Preliminary Peripheral Venipuncture No growth. 12/20/16 14:14 Blood Culture - Preliminary Peripheral Venipuncture No growth. 12/20/16 22:40 Urine Culture - Final Urine,Meng Port No growth. 12/20/16 04:10 Sputum Culture - Preliminary Sputum Escherichia coli Gram Negative Coccobacilli - Clinical Findings Intake & Output: Intake & Output 12/21/16 12/22/16 12/22/16 23:59 07:59 15:59 Intake Total 600 / 600 1748.2 / 1748.2 138.5 / 138.5 Output Total 875 / 875 300 / 300 250 / 250 Balance -275 / -275 1448.2 / 1448.2 -111.5 / -111.5 Weight 96.5 kg Consult Discharge Plan - Plan Referrals: Jj Hathaway DO [Primary Care Provider] - - Attending Attestation I examined this patient and my medical decision-making was reviewed with the Resident Physician. I agree with the documented findings, disposition and treatment plan as described except to the extent set forth below. Patient seen and examined at bedside Labs, radiology, chart personally reviewed. All lines examined without evidence of infection. Management was reviewed during multidisciplinary critical care rounds. Neuropsych: He has persistent anxiety which is being treated with Precedex it appears controlled we will give him small doses of short acting benzodiazepine as needed Pulm: Intubated for angioedema secondary to RITO inhibitor use liberated from vent today after CPAP trial and excellent weaning parameters. We are treating for what appears to be aspiration pneumonia. Cont bronchodilators for COPD. Smoking cessation counseling given. Cards: Chronic hypertension we are adjusting his blood pressure medications to treat this FEN-GI: Okay to advance diet after passes bedside speech swallow examination Renal: Acute kidney injury improving he has excellent urine output we are monitoring his electrolyte panel daily ID: Treated for Escherichia coli pneumonia de-escalate to ceftriaxone to complete 7 day course Heme/Onc: DVT prophylaxis given Endo: Glucose monitored Integ/MSK: Skin care per Routine ICU protocol to prevent ulcers CODE: Full code <Nia Hager-Eda - Last Filed: 12/22/16 11:28> Date of Encounter: 12/22/16 Time of Encounter: 11:13 Assessment and Plan (1) Angio-edema Current Visit: Yes Status: Acute Patient presents with acute angioedema likely secondary to RITO inhibitor use. Patient was CPAP for approximately one hour and 20 minutes. Patient was then extubated at 9:15 AM. Patient is completely off of sedation and ventilation. The oropharyngeal edema is improved. Continued DVT prophylaxis and GI prophylaxis. Continue to monitor the patient closely. Qualifiers: Encounter type: initial encounter Qualified Code(s): T78.3XXA - Angioneurotic edema, initial encounter (2) JOHNNY (acute kidney injury) Current Visit: Yes Status: Acute Acute kidney injury is likely secondary to hypotension and use of RITO inhibitor. Renal utrasound indicates no hydronephrosis. Creatinine is trending down and patient is making good urine output. Continue to follow this up with repeat electrolyte panel. Continue to monitor the patient closely (3) Aspiration pneumonia Current Visit: Yes Status: Acute Chest x-ray indicates possible pneumonia. Most likely aspiration pneumonia. Sputum culture showed E. coli and gram-negative coccobacilli. There were no growth on his blood culture and urine culture. Due to xiong sensitivities, discontinued zosyn and started cedftriaxone for coverage of possible aspiration pneumonia. Continue to monitor the patient closely. Qualifiers: Qualified Code(s): J69.0 - Pneumonitis due to inhalation of food and vomit (4) COPD (chronic obstructive pulmonary disease) Current Visit: Yes Status: Acute Patient has underlying COPD and is currently a smoker. Patient was extubated at 9:15 AM. No evidence of COPD exacerbation on chest x-ray. Continue breathing treatments for COPD. Continue to monitor the patient closely. Qualifiers: COPD type: unspecified COPD Qualified Code(s): J44.9 - Chronic obstructive pulmonary disease, unspecified (5) Hypertension Current Visit: Yes Status: Acute Patient has a history of severe hypertension. Patient hypertension is currently controlled his blood pressure medications. Continue to monitor the patient closely. Qualifiers: Hypertension type: unspecified secondary hypertension Qualified Code(s): I15.9 - Secondary hypertension, unspecified; I15 - Secondary hypertension (6) Elevated glucose Current Visit: Yes Status: Acute Glucose is monitored. Continue to monitor the patient closely (7) DVT prophylaxis Current Visit: Yes Status: Acute Heparin was given for DVT prophylaxis. Objective PUL Vital signs: Last Vital Signs Temp 99.2 F 12/22/16 08:00 Pulse 86 12/22/16 09:00 Resp 16 12/22/16 09:07 BP 185/100 12/22/16 09:15 Pulse Ox 96 12/22/16 09:15 General appearance: alert, other (Patient is extubated) Eyes: nonicteric ENT: oropharynx moist Neck: supple, no lymphadenopathy, no JVD Effort: normal Auscultation: bilateral: diminished breath sounds, wheezes, rhonchi Gastrointestinal: normoactive bowel sounds, soft, non-tender, non-distended Integumentary: normal Extremities: no cyanosis, no edema, no clubbing, pulses normal Musculoskeletal: no deformities other (Patient is coming off of sedation. Patient still follow commands) Ventilator Settings Ventilator Settings: Ventilator Settings, Last 8 Hours Ventilator Mode CPAP Ventilator Mode VC+ Ventilator Mode CPAP Ventilator Mode VC+ Ventilator Mode VC+ Ventilator Mode VC+ Ventilator Mode VC+ Ventilator Mode VC+ Ventilator Mode VC+ Ventilator Tidal Volume 550 Setting Ventilator Tidal Volume 550 Setting Ventilator Tidal Volume 550 Setting Ventilator Tidal Volume 550 Setting Ventilator Tidal Volume 550 Setting Ventilator Tidal Volume 550 Setting Ventilator Tidal Volume 550 Setting Ventilator Respiratory Rate 12 Setting Ventilator Respiratory Rate 12 Setting Ventilator Respiratory Rate 12 Setting Ventilator Respiratory Rate 12 Setting Ventilator Respiratory Rate 12 Setting Ventilator Respiratory Rate 12 Setting Ventilator Respiratory Rate 12 Setting Actual Respiratory Rate 16 Actual Respiratory Rate 18 Actual Respiratory Rate 15 Actual Respiratory Rate 16 Actual Respiratory Rate 15 Actual Respiratory Rate 17 Actual Respiratory Rate 16 Actual Respiratory Rate 17 Positive End Expiratory 5 Pressure Positive End Expiratory 5 Pressure Positive End Expiratory 5 Pressure Positive End Expiratory 5 Pressure Positive End Expiratory 5 Pressure Positive End Expiratory 5 Pressure Positive End Expiratory 5 Pressure Positive End Expiratory 5 Pressure Positive End Expiratory 5 Pressure Peak Inspiratory Airway 11 Pressure Peak Inspiratory Airway 19 Pressure Peak Inspiratory Airway 11 Pressure Peak Inspiratory Airway 20 Pressure Peak Inspiratory Airway 17 Pressure Peak Inspiratory Airway 19 Pressure Peak Inspiratory Airway 13 Pressure Peak Inspiratory Airway 16 Pressure Results - Laboratory Findings CBC and BMP: 12/22/16 03:00 12/22/16 03:00 ABG ABG pH 7.32 pH Units (7.32-7.45) 12/22/16 05:25 ABG pCO2 50 mmHg (35-45) H 12/22/16 05:25 ABG pO2 106 mmHg (85-104) H 12/22/16 05:25 ABG O2 Saturation 98 % (95-98) 12/22/16 05:25 PT/INR, D-dimer PT 11.6 Seconds (9.4-12.1) 12/18/16 12:15 Abnormal lab findings: Abnormal lab results RBC 3.86 M/mcL (4.19-5.50) L 12/22/16 03:00 Hgb 11.1 g/dL (12.9-16.9) L 12/22/16 03:00 Hct 35.2 % (37.5-50.1) L 12/22/16 03:00 MCHC 31.5 g/dL (31.6-35.5) L 12/22/16 03:00 Band Neutrophils % 18.0 % (0-4) H 12/21/16 04:04 Reactive Lymphocytes Present (Not Present) A 12/21/16 04:04 Smudge Cells Present (Not Present) A 12/21/16 04:04 ABG pCO2 50 mmHg (35-45) H 12/22/16 05:25 ABG pO2 106 mmHg (85-104) H 12/22/16 05:25 ABG Total CO2 27.3 mEq/L (20-26) H 12/22/16 05:25 Chloride 112 mEq/L (98-109) H 12/22/16 03:00 BUN 38 mg/dL (8-26) H 12/22/16 03:00 Creatinine 1.60 mg/dL (0.72-1.25) H 12/22/16 03:00 Est GFR ( Amer) 54 (> 60) L 12/22/16 03:00 Est GFR (Non-Af Amer) 44 (> 60) L 12/22/16 03:00 Calcium 8.1 mg/dL (8.6-10.8) L 12/22/16 03:00 Ionized Calcium 1.14 mmol/L (1.15-1.35) L 12/22/16 03:00 Serum Total Protein 5.3 g/dL (6.0-8.3) L 12/22/16 03:00 Albumin 2.1 g/dL (3.5-5.0) L 12/22/16 03:00 Albumin/Globulin Ratio 0.7 (1.1-2.2) L 12/22/16 03:00 Ur Creatinine 24 Hour 2.37 g/day (0.71-1.65) H 12/19/16 11:00 - Microbiology Findings Microbiology Findings: Microbiology, Last 48 Hours 12/20/16 22:44 Blood Culture - Preliminary Peripheral Venipuncture No growth. 12/20/16 22:43 Blood Culture - Preliminary Peripheral Venipuncture No growth. 12/20/16 14:14 Blood Culture - Preliminary Peripheral Venipuncture No growth. 12/20/16 22:40 Urine Culture - Final Urine,Meng Port No growth. 12/20/16 04:10 Sputum Culture - Preliminary Sputum Escherichia coli Gram Negative Coccobacilli - Clinical Findings Intake & Output: Intake & Output 12/21/16 12/22/16 12/22/16 23:59 07:59 15:59 Intake Total 600 / 600 1748.2 / 1748.2 138.5 / 138.5 Output Total 875 / 875 300 / 300 250 / 250 Balance -275 / -275 1448.2 / 1448.2 -111.5 / -111.5 Weight 96.5 kg
[2016-12-22] MEDS ORDERED: amLODIPine 5 MG TABLET PO SCH (11:15)
[2016-12-22] MEDS: *HR* Metoprolol 5 MG/5 ML VIAL IVP SCH ×2 (13:11→17:57)
[2016-12-23] MEDS: Insulin LISPRO 300 UNITS/3 ML VIAL SQ SCH ×4 (00:22→18:26)
[2016-12-23] MEDS: Lacri-Lube 3.5 GM TUBE BOTH EYES SCH ×3 (00:23→08:12)
[2016-12-23] MEDS: Ipratropium/Albuterol Neb 3 ML IH SCH ×7 (00:31→23:36)
[2016-12-23] MEDS: *HR* Metoprolol 5 MG/5 ML VIAL IVP SCH ×3 (03:23→06:00)
[2016-12-23 04:14] LABS: Alanine Aminotransferase 13 Units/L (0-55); Albumin 2.5 g/dL (3.5-5.0); Albumin/Globulin Ratio 0.7 (1.1-2.2); Alkaline Phosphatase 71 Units/L (38-126); Aspartate Amino Transferase 21 Units/L (5-34); BUN/Creatinine Ratio 30 (6-26); Blood Urea Nitrogen 39 mg/dL (8-26); Calcium 8.9 mg/dL (8.6-10.8); Carbon Dioxide 26 mEq/L (19-29); Chloride 112 mEq/L (98-109); Globulin 3.6 g/dL (2.4-3.5); Glucose 104 mg/dL (70-99); Osmolality,Calculated 314 (280-300); Potassium 4.1 mEq/L (3.5-4.5); Sodium 147 mEq/L (136-145); Total Protein 6.1 g/dL (6.0-8.3); eGFR For African Americans > 60 (> 60); eGFR For Non-African Americans 56 (> 60)
[2016-12-23 04:15] LABS: Bilirubin,Total 0.8 mg/dL (0.2-1.2)
[2016-12-23] MEDS: *HR* LORazepam 2 MG/ML VIAL IVP PRN (05:07)
[2016-12-23] MEDS: *HR* Heparin 5,000 UNIT/ML VIAL SQ SCH ×3 (06:00→20:34)
[2016-12-23] MEDS: Famotidine 20 MG/2 ML VIAL IVP SCH ×2 (06:00→17:26)
[2016-12-23 08:04] LABS: ABG Base Excess 2.2 mEq/L (-2.0 to 3.0); ABG HCO3 24.7 mEQ/L (21-27); ABG Oxygen Saturation 96 % (95-98); ABG PCO2 31 mmHg (35-45); ABG PH 7.51 pH Units (7.32-7.45); ABG PO2 73 mmHg (85-104); ABG TCO2 25.7 mEq/L (20-26); Blood Gas Liter Flow 5 L/MIN
[2016-12-23] MEDS ORDERED: amLODIPine 5 MG TABLET PO SCH (09:40)
[2016-12-23] MEDS ORDERED: *HR* Dextrose 50 % in Water (Syg) 50 ML SYRINGE IVP PRN (10:08)
[2016-12-23] MEDS ORDERED: D5% in Water 1,000 ML IVC PRN (10:08)
[2016-12-23] MEDS ORDERED: Saliva Stimulant 100ml BOTTLE PO PRN (10:08)
[2016-12-23] MEDS ORDERED: Naloxone 0.4 MG/ML INJ IVP PRN (10:08)
[2016-12-23] MEDS ORDERED: Dextrose Gel 15 GM PO PRN ×2 (10:08)
--- NOTE | 2016-12-23 11:15 | Pulmonology Progress Note ---
<Zainab Smith - Last Filed: 12/23/16 11:12> Date of Encounter: 12/23/16 Time of Encounter: 10:30 Assessment and Plan (1) Hypertension Current Visit: Yes Status: Chronic Male patient initially presented to the hospital with angioedema. He had been noncompliant with his hypertensive medications and was significantly hypertensive at home. He decided to take his medication but he had not taken in a while due to having a headache. This included lisinopril. He then had an episode of angioedema which he was intubated and admitted to the hospital. Does have a history of COPD and is a current smoker. Chest x-ray is indicative of pneumonia. We will continue patient on Rocephin for possible aspiration pneumonia. Patient was extubated yesterday. He has had a waxing and waning confusion. This is likely secondary to ICU delirium. He has been on several different benzos intermittently since he has been here. Stop these. We will also assist the patient with resolving his delirium by having the curtains open and music in the television on. We will keep him simulated during the day and help him rest at night. His angioedema is completely resolved at this time. He remains mildly hypertensive. It appears that he has severe uncontrolled hypertension at home. We will continue to monitor his medication until we can achieve a blood pressure suitable for the patient. Patient's JOHNNY appears to be resolving. We will continue to monitor patient for improved neurologic function at that time do a swallow study to start him on a diet. We will transfer patient out of ICU today. Sputum culture positive for Escherichia coli and Haemophilus influenza 3. Sensitive to Rocephin. Head CT normal Plan: Heparin for DVT prophylaxis. Sliding-scale insulin Metoprolol twice a day 50 mg. Increase Norvasc to 10 mg daily. Pepcid for GI prophylaxis Rocephin for aspiration pneumonia Do not restart an Edwin or ARB Qualifiers: Hypertension type: unspecified secondary hypertension Qualified Code(s): I15.9 - Secondary hypertension, unspecified; I15 - Secondary hypertension (2) Angio-edema Current Visit: Yes Status: Resolved Qualifiers: Encounter type: initial encounter Qualified Code(s): T78.3XXA - Angioneurotic edema, initial encounter (3) Elevated glucose Current Visit: Yes Status: Acute (4) COPD (chronic obstructive pulmonary disease) Current Visit: Yes Status: Chronic Qualifiers: COPD type: unspecified COPD Qualified Code(s): J44.9 - Chronic obstructive pulmonary disease, unspecified (5) JOHNNY (acute kidney injury) Current Visit: Yes Status: Acute (6) Ventilator-associated bacterial pneumonia Current Visit: Yes Status: Acute (7) DVT prophylaxis Current Visit: Yes Status: Acute (8) Delirium without dementia Current Visit: Yes Status: Acute Objective PUL Vital signs: Last Vital Signs Temp 97.8 F 12/23/16 08:06 Pulse 73 12/23/16 08:03 Resp 20 12/23/16 08:00 BP 179/92 12/23/16 08:00 Pulse Ox 95 12/23/16 08:00 General appearance: alert, other (Confused. At times he will answer questions appropriately.) Eyes: nonicteric ENT: oropharynx moist Neck: supple Effort: normal Auscultation: bilateral: clear Cardiovascular: regular rate and rhythm Gastrointestinal: normoactive bowel sounds, soft, non-tender, tender, non- distended Integumentary: normal Extremities: no cyanosis, no edema, no clubbing, pink and warm, pulses normal Musculoskeletal: no deformities Gait: normal gait, normal posture non-focal exam, pupils equal and round, other (Patient confused. At times he does answer questions appropriately.) Results - Laboratory Findings CBC and BMP: 12/22/16 03:00 12/23/16 03:23 ABG ABG pH 7.51 pH Units (7.32-7.45) H 12/23/16 07:48 ABG pCO2 31 mmHg (35-45) L 12/23/16 07:48 ABG pO2 73 mmHg (85-104) L 12/23/16 07:48 ABG O2 Saturation 96 % (95-98) 12/23/16 07:48 PT/INR, D-dimer PT 11.6 Seconds (9.4-12.1) 12/18/16 12:15 Abnormal lab findings: Abnormal lab results RBC 3.86 M/mcL (4.19-5.50) L 12/22/16 03:00 Hgb 11.1 g/dL (12.9-16.9) L 12/22/16 03:00 Hct 35.2 % (37.5-50.1) L 12/22/16 03:00 MCHC 31.5 g/dL (31.6-35.5) L 12/22/16 03:00 Band Neutrophils % 18.0 % (0-4) H 12/21/16 04:04 Reactive Lymphocytes Present (Not Present) A 12/21/16 04:04 Smudge Cells Present (Not Present) A 12/21/16 04:04 ABG pH 7.51 pH Units (7.32-7.45) H 12/23/16 07:48 ABG pCO2 31 mmHg (35-45) L 12/23/16 07:48 ABG pO2 73 mmHg (85-104) L 12/23/16 07:48 Sodium 147 mEq/L (136-145) H 12/23/16 03:23 Chloride 112 mEq/L (98-109) H 12/23/16 03:23 BUN 39 mg/dL (8-26) H 12/23/16 03:23 Creatinine 1.30 mg/dL (0.72-1.25) H 12/23/16 03:23 Est GFR (Non-Af Amer) 56 (> 60) L 12/23/16 03:23 BUN/Creatinine Ratio 30 (6-26) H 12/23/16 03:23 Glucose 104 mg/dL (70-99) H 12/23/16 03:23 Calculated Osmolality 314 (280-300) H 12/23/16 03:23 Ionized Calcium 1.14 mmol/L (1.15-1.35) L 12/22/16 03:00 Albumin 2.5 g/dL (3.5-5.0) L 12/23/16 03:23 Globulin 3.6 g/dL (2.4-3.5) H 12/23/16 03:23 Albumin/Globulin Ratio 0.7 (1.1-2.2) L 12/23/16 03:23 Ur Creatinine 24 Hour 2.37 g/day (0.71-1.65) H 12/19/16 11:00 - Microbiology Findings Microbiology Findings: Microbiology, Last 48 Hours 12/20/16 04:10 Sputum Culture - Final Sputum Escherichia coli Haemophilus influenzae III 12/20/16 22:44 Blood Culture - Preliminary Peripheral Venipuncture No growth. 12/20/16 22:43 Blood Culture - Preliminary Peripheral Venipuncture No growth. 12/20/16 14:14 Blood Culture - Preliminary Peripheral Venipuncture No growth. 12/20/16 22:40 Urine Culture - Final Urine,Meng Port No growth. - Clinical Findings Intake & Output: Intake & Output 12/22/16 12/23/16 12/23/16 23:59 07:59 15:59 Intake Total 100 / 100 0 / 0 Output Total 1000 / 1000 600 / 600 350 / 350 Balance -900 / -900 -600 / -600 -350 / -350 Weight 92.397 kg Consult Discharge Plan - Plan Referrals: Jj Hathaway DO [Primary Care Provider] - <Anuel Pratt W - Last Filed: 12/23/16 11:47> Date of Encounter: 12/23/16 Objective PUL Vital signs: Last Vital Signs Temp 98.6 F 12/23/16 11:00 Pulse 73 12/23/16 11:32 Resp 20 12/23/16 11:38 BP 182/87 12/23/16 11:00 Pulse Ox 95 12/23/16 11:38 Results - Laboratory Findings CBC and BMP: 12/22/16 03:00 12/23/16 03:23 ABG ABG pH 7.51 pH Units (7.32-7.45) H 12/23/16 07:48 ABG pCO2 31 mmHg (35-45) L 12/23/16 07:48 ABG pO2 73 mmHg (85-104) L 12/23/16 07:48 ABG O2 Saturation 96 % (95-98) 12/23/16 07:48 PT/INR, D-dimer PT 11.6 Seconds (9.4-12.1) 12/18/16 12:15 Abnormal lab findings: Abnormal lab results RBC 3.86 M/mcL (4.19-5.50) L 12/22/16 03:00 Hgb 11.1 g/dL (12.9-16.9) L 12/22/16 03:00 Hct 35.2 % (37.5-50.1) L 12/22/16 03:00 MCHC 31.5 g/dL (31.6-35.5) L 12/22/16 03:00 Band Neutrophils % 18.0 % (0-4) H 12/21/16 04:04 Reactive Lymphocytes Present (Not Present) A 12/21/16 04:04 Smudge Cells Present (Not Present) A 12/21/16 04:04 ABG pH 7.51 pH Units (7.32-7.45) H 12/23/16 07:48 ABG pCO2 31 mmHg (35-45) L 12/23/16 07:48 ABG pO2 73 mmHg (85-104) L 12/23/16 07:48 Sodium 147 mEq/L (136-145) H 12/23/16 03:23 Chloride 112 mEq/L (98-109) H 12/23/16 03:23 BUN 39 mg/dL (8-26) H 12/23/16 03:23 Creatinine 1.30 mg/dL (0.72-1.25) H 12/23/16 03:23 Est GFR (Non-Af Amer) 56 (> 60) L 12/23/16 03:23 BUN/Creatinine Ratio 30 (6-26) H 12/23/16 03:23 Glucose 104 mg/dL (70-99) H 12/23/16 03:23 POC Glucose 111 (58-89) H 12/23/16 11:29 Calculated Osmolality 314 (280-300) H 12/23/16 03:23 Ionized Calcium 1.14 mmol/L (1.15-1.35) L 12/22/16 03:00 Albumin 2.5 g/dL (3.5-5.0) L 12/23/16 03:23 Globulin 3.6 g/dL (2.4-3.5) H 12/23/16 03:23 Albumin/Globulin Ratio 0.7 (1.1-2.2) L 12/23/16 03:23 Ur Creatinine 24 Hour 2.37 g/day (0.71-1.65) H 12/19/16 11:00 - Microbiology Findings Microbiology Findings: Microbiology, Last 48 Hours 12/20/16 04:10 Sputum Culture - Final Sputum Escherichia coli Haemophilus influenzae III 12/20/16 22:44 Blood Culture - Preliminary Peripheral Venipuncture No growth. 12/20/16 22:43 Blood Culture - Preliminary Peripheral Venipuncture No growth. 12/20/16 14:14 Blood Culture - Preliminary Peripheral Venipuncture No growth. 12/20/16 22:40 Urine Culture - Final Urine,Meng Port No growth. - Clinical Findings Intake & Output: Intake & Output 12/22/16 12/23/16 12/23/16 23:59 07:59 15:59 Intake Total 100 / 100 0 / 0 Output Total 1000 / 1000 600 / 600 350 / 350 Balance -900 / -900 -600 / -600 -350 / -350 Weight 92.397 kg - Attending Attestation I examined this patient and my medical decision-making was reviewed with the Resident Physician. I agree with the documented findings, disposition and treatment plan as described except to the extent set forth below. Patient seen and examined at bedside Labs, radiology, chart personally reviewed. All lines examined without evidence of infection. Management was reviewed during multidisciplinary critical care rounds. Neuropsych: Acute ICU delirium head CT without acute process avoid [employer] depressant medications can consider Precedex for agitation if needed pentecostal of sleep-wake cycle Pulm: Acute angioedema which has resolved he was intubated for this and developed pneumonia which is being treated he has acceptable oxygenation on nasal cannula O2 likely underlying COPD continue bronchodilators Cards: Chronic hypertension for which we started beta cierra these can be titrated as needed FEN-GI: Nothing by mouth for now given delirium Renal:Acute kidney injury is resolving excellent urine output continue to monitor daily renal function avoid nephrotoxins ID: Evidence of aspiration pneumonia is being treated on appropriate antimicrobials would recommend continuation of antibiotics for 7 days based upon clinical course Heme/Onc:DVT prophylaxis given Endo:Glucose monitored Integ/MSK: Skin care per routine ICU protocol to prevent ulcers [facility]
[2016-12-23] MEDS: hydrALAZINE 10 MG TABLET PO SCH (17:25)
--- NOTE | 2016-12-23 18:50 | Electrocardiograph Report ---
[address] [place] [address] Test Date: 2016-12-22 Pat Name: Aroldo Suresh Department: 109 Room: [facility] Gender: M Transcription Coordinator: : 1955 Requested By: Monica Hager Order Number: [id number] Reading MD: Wilfred Jha MD Measurements Intervals [place] Rate: 80 P: 53 SC: 139 QRS: 37 QRSD: 92 T: 62 QT: 365 QTc: 401 Interpretive Statements SINUS RHYTHM BASELINE ARTIFACT Electronically Signed On 12-23-2016 18:49:22 EDT by Wilfred Jha MD
[2016-12-24] MEDS: hydrALAZINE 10 MG TABLET PO SCH ×4 (00:08→23:21)
[2016-12-24] MEDS: Insulin LISPRO 300 UNITS/3 ML VIAL SQ SCH ×5 (00:20→23:22)
[2016-12-24] MEDS: Ipratropium/Albuterol Neb 3 ML IH SCH ×2 (03:05→07:48)
[2016-12-24] MEDS: Famotidine 20 MG/2 ML VIAL IVP SCH ×2 (03:58→18:18)
[2016-12-24] MEDS: *HR* Heparin 5,000 UNIT/ML VIAL SQ SCH ×3 (03:59→23:21)
--- NOTE | 2016-12-24 08:19 | Pulmonology Progress Note ---
<Eloy Benjamin - Last Filed: 12/24/16 14:27> Date of Encounter: 12/24/16 Time of Encounter: 07:00 Assessment and Plan (1) Angio-edema Current Visit: Yes Status: Resolved Resolved. Patient denies any chest pain, shortness of breath, facial swelling, tongue swelling, difficulty with swallowing. He does complain of a mild sore throat. Plan: Transfer orders in for step down to floor Do not restart Edwin or ARB Lozenges for sore throat Start Regular diet Pepcid for GI prophylaxis Heparin 5000 q8h DVT prophylaxis Qualifiers: Encounter type: initial encounter Qualified Code(s): T78.3XXA - Angioneurotic edema, initial encounter (2) Ventilator-associated bacterial pneumonia Current Visit: Yes Status: Acute Afebrile. Lungs clear to auscultation. Patient is on day 5 of antibiotics. We will stop Rocephin. (3) COPD (chronic obstructive pulmonary disease) Current Visit: Yes Status: Chronic Lungs clear to auscultation. Satting well on room air, 99% Continue albuterol and DuoNeb as needed. Qualifiers: COPD type: unspecified COPD Qualified Code(s): J44.9 - Chronic obstructive pulmonary disease, unspecified (4) JOHNNY (acute kidney injury) Current Visit: Yes Status: Acute Resolved (5) Elevated glucose Current Visit: Yes Status: Acute Glucose well controlled in low 100s. Continue sliding scale index (6) Hypertension Current Visit: Yes Status: Chronic Blood pressure 150s over 80s. However, pulse in the 40s. Asymptomatic at this time. Stop metoprolol due to bradycardia. Norvasc 10 mg daily. Hydralazine 10 mg every 8 hours. Hydralazine 10 mg IV push every 4-6 hours as needed. Qualifiers: Hypertension type: unspecified secondary hypertension Qualified Code(s): I15.9 - Secondary hypertension, unspecified; I15 - Secondary hypertension (7) DVT prophylaxis Current Visit: Yes Status: Acute Heparin 5000 units every 8 hours Subjective Principal diagnosis: Angioedema Interval history: No major events overnight. Patient denies any chest pain, shortness of breath, facial swelling, tongue swelling, difficulty with swallowing. He does complain of a mild sore throat. No fevers overnight. Objective PUL Vital signs: Last Vital Signs Temp 98.4 F 12/24/16 07:58 Pulse 47 12/24/16 06:00 Resp 18 12/24/16 07:49 BP 153/89 12/24/16 06:00 Pulse Ox 93 12/24/16 07:49 General appearance: no acute distress Eyes: nonicteric ENT: oropharynx moist Neck: supple Effort: normal Auscultation: bilateral: diminished breath sounds Cardiovascular: regular rate and rhythm Gastrointestinal: normoactive bowel sounds Integumentary: normal Extremities: no cyanosis, no edema, no clubbing Musculoskeletal: no deformities normal mental status, non-focal exam mood appropriate, affect normal Results - Laboratory Findings CBC and BMP: 12/24/16 12:51 12/24/16 12:51 ABG ABG pH 7.51 pH Units (7.32-7.45) H 12/23/16 07:48 ABG pCO2 31 mmHg (35-45) L 12/23/16 07:48 ABG pO2 73 mmHg (85-104) L 12/23/16 07:48 ABG O2 Saturation 96 % (95-98) 12/23/16 07:48 PT/INR, D-dimer PT 11.6 Seconds (9.4-12.1) 12/18/16 12:15 Abnormal lab findings: Abnormal lab results RBC 3.86 M/mcL (4.19-5.50) L 12/22/16 03:00 Hgb 11.1 g/dL (12.9-16.9) L 12/22/16 03:00 Hct 35.2 % (37.5-50.1) L 12/22/16 03:00 MCHC 31.5 g/dL (31.6-35.5) L 12/22/16 03:00 Band Neutrophils % 18.0 % (0-4) H 12/21/16 04:04 Reactive Lymphocytes Present (Not Present) A 12/21/16 04:04 Smudge Cells Present (Not Present) A 12/21/16 04:04 ABG pH 7.51 pH Units (7.32-7.45) H 12/23/16 07:48 ABG pCO2 31 mmHg (35-45) L 12/23/16 07:48 ABG pO2 73 mmHg (85-104) L 12/23/16 07:48 Sodium 147 mEq/L (136-145) H 12/23/16 03:23 Chloride 112 mEq/L (98-109) H 12/23/16 03:23 BUN 39 mg/dL (8-26) H 12/23/16 03:23 Creatinine 1.30 mg/dL (0.72-1.25) H 12/23/16 03:23 Est GFR (Non-Af Amer) 56 (> 60) L 12/23/16 03:23 BUN/Creatinine Ratio 30 (6-26) H 12/23/16 03:23 Glucose 104 mg/dL (70-99) H 12/23/16 03:23 POC Glucose 97 (58-89) H 12/24/16 00:18 Calculated Osmolality 314 (280-300) H 12/23/16 03:23 Ionized Calcium 1.14 mmol/L (1.15-1.35) L 12/22/16 03:00 Albumin 2.5 g/dL (3.5-5.0) L 12/23/16 03:23 Globulin 3.6 g/dL (2.4-3.5) H 12/23/16 03:23 Albumin/Globulin Ratio 0.7 (1.1-2.2) L 12/23/16 03:23 Ur Creatinine 24 Hour 2.37 g/day (0.71-1.65) H 12/19/16 11:00 - Microbiology Findings Microbiology Findings: Microbiology, Last 48 Hours 12/20/16 04:10 Sputum Culture - Final Sputum Escherichia coli Haemophilus influenzae III 12/20/16 22:44 Blood Culture - Preliminary Peripheral Venipuncture No growth. 12/20/16 22:43 Blood Culture - Preliminary Peripheral Venipuncture No growth. 12/20/16 14:14 Blood Culture - Preliminary Peripheral Venipuncture No growth. 12/20/16 22:40 Urine Culture - Final Urine,Meng Port No growth. - Clinical Findings Intake & Output: Intake & Output 12/23/16 12/24/16 12/24/16 23:59 07:59 15:59 Intake Total 600 / 600 Output Total 600 / 600 550 / 550 Balance 0 / 0 -550 / -550 Weight 92.351 kg Consult Discharge Plan - Plan Referrals: Jj Hathaway DO [Primary Care Provider] - <Evelyn Cueva - Last Filed: 12/24/16 17:16> Date of Encounter: 12/24/16 Objective PUL Vital signs: Last Vital Signs Temp 98.5 F 12/24/16 12:00 Pulse 53 12/24/16 14:00 Resp 16 12/24/16 14:00 BP 144/75 12/24/16 14:00 Pulse Ox 99 12/24/16 14:00 Results - Laboratory Findings CBC and BMP: 12/24/16 12:51 12/24/16 12:51 ABG ABG pH 7.51 pH Units (7.32-7.45) H 12/23/16 07:48 ABG pCO2 31 mmHg (35-45) L 12/23/16 07:48 ABG pO2 73 mmHg (85-104) L 12/23/16 07:48 ABG O2 Saturation 96 % (95-98) 12/23/16 07:48 PT/INR, D-dimer PT 11.6 Seconds (9.4-12.1) 12/18/16 12:15 Abnormal lab findings: Abnormal lab results WBC 14.7 K/mcL (4.3-11.1) H 12/24/16 12:51 RBC 4.15 M/mcL (4.19-5.50) L 12/24/16 12:51 Hgb 12.1 g/dL (12.9-16.9) L 12/24/16 12:51 Hct 36.3 % (37.5-50.1) L 12/24/16 12:51 Immature Gran % 4.8 % (0-4) H 12/24/16 12:51 Band Neutrophils % 18.0 % (0-4) H 12/21/16 04:04 Neutrophils # 10.3 K/mcL (1.6-8.9) H 12/24/16 12:51 Monocytes # 1.9 K/mcL (0.0-1.3) H 12/24/16 12:51 Reactive Lymphocytes Present (Not Present) A 12/21/16 04:04 Smudge Cells Present (Not Present) A 12/21/16 04:04 ABG pH 7.51 pH Units (7.32-7.45) H 12/23/16 07:48 ABG pCO2 31 mmHg (35-45) L 12/23/16 07:48 ABG pO2 73 mmHg (85-104) L 12/23/16 07:48 BUN 37 mg/dL (8-26) H 12/24/16 12:51 BUN/Creatinine Ratio 34 (6-26) H 12/24/16 12:51 Glucose 112 mg/dL (70-99) H 12/24/16 12:51 POC Glucose 97 (58-89) H 12/24/16 00:18 Calculated Osmolality 303 (280-300) H 12/24/16 12:51 Ionized Calcium 1.14 mmol/L (1.15-1.35) L 12/22/16 03:00 Albumin 2.5 g/dL (3.5-5.0) L 12/23/16 03:23 Globulin 3.6 g/dL (2.4-3.5) H 12/23/16 03:23 Albumin/Globulin Ratio 0.7 (1.1-2.2) L 12/23/16 03:23 Ur Creatinine 24 Hour 2.37 g/day (0.71-1.65) H 12/19/16 11:00 - Clinical Findings Intake & Output: Intake & Output 12/24/16 12/24/16 12/24/16 07:59 15:59 23:59 Intake Total 360 / 360 Output Total 550 / 550 500 / 500 Balance -550 / -550 -140 / -140 - Attending Attestation I examined this patient and my medical decision-making was reviewed with the Resident Physician. I agree with the documented findings, disposition and treatment plan as described except to the extent set forth below. Patient seen and examined. Labs, radiology, chart personally reviewed. 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 GI: Nutrition per dietary and GI prophylaxis per routine Heme: DVT prophylaxis per routine ID: Continue antibiotics and plan to de-escalation Renal; urine out put and renal funtion reviewed Endorcine: blood glucose is monitored Lines: all lines checked and no evidence of infections Skin: skin care to prevent pressure ulcers per nursing routine care Patient is awaiting to be transferred to the floor.
[2016-12-24] MEDS: amLODIPine 5 MG TABLET PO SCH (09:37)
--- NOTE | 2016-12-24 10:21 | Internal Med Progress Note ---
Date of Encounter: 12/24/16 Time of Encounter: 09:05 - Assessment and plan (1) Aspiration pneumonia Current Visit: Yes Status: Acute Assessment and plan: continue current abx treatment abx for a total of 7 days sputum culture positive for E.coli and H influenzae III f/u official blood cultures (preliminary blood cultures: NGTD) Qualifiers: Aspiration pneumonia type: unspecified Laterality: unspecified laterality Lung location: unspecified part of lung Qualified Code(s): J69.0 - Pneumonitis due to inhalation of food and vomit (2) Angio-edema Current Visit: Yes Status: Resolved Assessment and plan: resolved at this time continue O2 supplementation s/p extubation Qualifiers: Encounter type: initial encounter Qualified Code(s): T78.3XXA - Angioneurotic edema, initial encounter (3) Hypertension Current Visit: Yes Status: Chronic Assessment and plan: Continue home medications added Hydralazine 10mg IV q6h PRN SBP>150 Closely monitor BP Qualifiers: Hypertension type: unspecified secondary hypertension Qualified Code(s): I15.9 - Secondary hypertension, unspecified; I15 - Secondary hypertension (4) COPD (chronic obstructive pulmonary disease) Current Visit: Yes Status: Chronic Assessment and plan: not in acute exacerbation continue bronchodilator support and O2 supplementation as needed Qualifiers: COPD type: unspecified COPD Qualified Code(s): J44.9 - Chronic obstructive pulmonary disease, unspecified (5) JOHNNY (acute kidney injury) Current Visit: Yes Status: Acute Assessment and plan: renal function improving will f/u repeat labs avoid nephrotoxic agents continue to closely monitor (6) Delirium without dementia Current Visit: Yes Status: Resolved (7) Elevated glucose Current Visit: Yes Status: Acute Assessment and plan: f/u HbA1C continue accuchecks and ss insulin algorithm (8) DVT prophylaxis Current Visit: Yes Status: Acute Assessment and plan: Heparin SQ - Subjective Interval history: Pt seen and examined at bedside. Resting in bed. Mental status AAO x 3 at this time. admitted for angioedema secondary to lisinopril and Aspiration PNA. Currently reports of feeling better. Denies any sob, chest pain, cough, fever, or chills. Tolerating PO intake well. Awaiting bed for transfer out of the ICU - Constitutional Vitals: Temp Pulse Resp BP Pulse Ox 98.4 F 49 16 157/92 99 12/24/16 08:00 12/24/16 10:08 12/24/16 10:08 12/24/16 10:08 12/24/16 10:08 General appearance: Present: A&O X 3, no acute distress - Head Head exam: Present: atraumatic, normocephalic - Eye Eye exam: Present: conjuntiva pink, sclera anicteric - Respiratory Respiratory exam: Absent: respiratory distress, wheezes - Cardiovascular Cardiovascular exam: Present: bradycardia, +S1, +S2. Absent: diastolic murmur, systolic murmur - GI/Abdominal GI/Abdominal exam: Present: normal bowel sounds, soft, no peritoneal signs. Absent: distended, tenderness - Extremities Exam Extremities exam: Present: warm, radial pulses palpable and symetrical. Absent : calf tenderness, cyanotic, pedal edema - Neurological Exam Neurological exam: Present: alert, oriented X3 - Psychiatric Psychiatric exam: Present: normal affect, normal mood Internal Medicine: Result - Labs CBC & Chem 7: 12/22/16 03:00 12/23/16 03:23 - ABG Interpretation ABG results: ABG ABG pH 7.51 pH Units (7.32-7.45) H 12/23/16 07:48 ABG pCO2 31 mmHg (35-45) L 12/23/16 07:48 ABG pO2 73 mmHg (85-104) L 12/23/16 07:48 ABG O2 Saturation 96 % (95-98) 12/23/16 07:48 PT/INR, D-dimer PT 11.6 Seconds (9.4-12.1) 12/18/16 12:15 Consult Discharge Plan - Plan Referrals: Jj Hathaway DO [Primary Care Provider] -
[2016-12-24 13:06] LABS: BUN/Creatinine Ratio 34 (6-26); Basophils # 0.1 K/mcL (0.0-0.2); Basophils % 0.5 %; Blood Urea Nitrogen 37 mg/dL (8-26); Calcium 8.7 mg/dL (8.6-10.8); Carbon Dioxide 29 mEq/L (19-29); Chloride 106 mEq/L (98-109); Eosinophils # 0.1 K/mcL (0.0-0.6); Eosinophils % 0.3 %; Glucose 112 mg/dL (70-99); Hematocrit 36.3 % (37.5-50.1); Hemoglobin 12.1 g/dL (12.9-16.9); Immature Granulocytes % 4.8 % (0-4); Lymphocytes # 1.7 K/mcL (0.6-4.6); Lymphocytes % 11.5 %; Magnesium 1.9 mg/dL (1.6-2.6); Mean Corpuscular HGB Conc 33.3 g/dL (31.6-35.5); Mean Corpuscular Hemoglobin 29.2 pg (28.0-33.3); Mean Corpuscular Volume 87.5 fL (83.0-100.0); Mean Platelet Volume 10.4 fL (9.4-12.4); Monocytes # 1.9 K/mcL (0.0-1.3); Neutrophils # 10.3 K/mcL (1.6-8.9); Osmolality,Calculated 303 (280-300); Phosphorous 3.2 mg/dL (2.3-4.7); Platelet Count 206 K/mcL (140-400); Red Blood Count 4.15 M/mcL (4.19-5.50); Red Cell Distribution Width 13.3 % (11.5-14.5); Segmented Neutrophils % 69.9 %; Sodium 142 mEq/L (136-145); eGFR For African Americans > 60 (> 60); eGFR For Non-African Americans > 60 (> 60)
[2016-12-24 14:43] LABS: Hemoglobin A1C 5.5 %
[2016-12-24] MEDS ORDERED: Ondansetron 4 MG/2 ML VIAL IVP PRN (20:01)
[2016-12-24] MEDS ORDERED: traMADol 50 MG TABLET PO PRN (22:53)
[2016-12-24] MEDS ORDERED: traZODone 50 MG TABLET PO PRN (22:54)
[2016-12-25 05:05] LABS: Hematocrit 37.1 % (37.5-50.1); Hemoglobin 12.1 g/dL (12.9-16.9); Mean Corpuscular HGB Conc 32.6 g/dL (31.6-35.5); Mean Corpuscular Hemoglobin 28.3 pg (28.0-33.3); Mean Corpuscular Volume 86.9 fL (83.0-100.0); Mean Platelet Volume 10.3 fL (9.4-12.4); Platelet Count 192 K/mcL (140-400); Red Blood Count 4.27 M/mcL (4.19-5.50)
[2016-12-25 05:22] LABS: BUN/Creatinine Ratio 31 (6-26); Blood Urea Nitrogen 34 mg/dL (8-26); Calcium 8.4 mg/dL (8.6-10.8); Carbon Dioxide 28 mEq/L (19-29); Chloride 105 mEq/L (98-109); Glucose 96 mg/dL (70-99); Magnesium 1.9 mg/dL (1.6-2.6); Osmolality,Calculated 297 (280-300); Phosphorous 3.6 mg/dL (2.3-4.7); Potassium 3.9 mEq/L (3.5-4.5); Sodium 140 mEq/L (136-145); eGFR For African Americans > 60 (> 60); eGFR For Non-African Americans > 60 (> 60)
[2016-12-25 05:38] LABS: Lymphocytes # 1.5 K/mcL (0.6-4.6); Monocytes # 1.3 K/mcL (0.0-1.3); Neutrophils # 11.5 K/mcL (1.6-8.9); Platelet Estimate Normal (Normal)
[2016-12-25] MEDS: *HR* Heparin 5,000 UNIT/ML VIAL SQ SCH (06:07)
[2016-12-25] MEDS: Famotidine 20 MG/2 ML VIAL IVP SCH (06:07)
[2016-12-25] MEDS: Insulin LISPRO 300 UNITS/3 ML VIAL SQ SCH (06:07)
[2016-12-25] MEDS: hydrALAZINE 10 MG TABLET PO SCH (06:07)
[2016-12-25 08:02] VITALS: BP 136/76
--- NOTE | 2016-12-25 08:03 | Discharge Summary ---
<Eloy Benjamin - Last Filed: 12/25/16 08:51> Date of Encounter: 12/25/16 Time of Encounter: 07:15 - Discharge Diagnosis (1) Angio-edema Priority: Primary Status: Resolved Qualifiers: Encounter type: initial encounter Qualified Code(s): T78.3XXA - Angioneurotic edema, initial encounter (2) COPD (chronic obstructive pulmonary disease) Priority: Secondary Status: Chronic Qualifiers: COPD type: unspecified COPD Qualified Code(s): J44.9 - Chronic obstructive pulmonary disease, unspecified (3) JOHNNY (acute kidney injury) Priority: Secondary Status: Resolved (4) Elevated glucose Priority: Secondary Status: Resolved (5) Hypertension Priority: Secondary Status: Chronic Qualifiers: Hypertension type: unspecified secondary hypertension Qualified Code(s): I15.9 - Secondary hypertension, unspecified; I15 - Secondary hypertension (6) Ventilator-associated bacterial pneumonia Priority: Secondary Status: Resolved - Discharge Medications Prescriptions: Albuterol Sulfate [Albuterol Inhaler] 2 puff IH Q4-6H PRN #1 hfa.[email or web address] PRN Reason: Shortness Of Breath amLODIPine [Norvasc] 10 mg PO DAILY #14 tablet Home Medications: Ibuprofen [Advil] 200 - 800 mg PO Q6H PRN 12/18/16 [History] Albuterol Sulfate [Albuterol Inhaler] 2 puff IH Q4-6H PRN #1 hfa.aer.ad [Rx] amLODIPine [Norvasc] 10 mg PO DAILY #14 tablet 12/25/16 [Rx] Allergies/Adverse Reactions: Allergies acetaminophen [From Percocet] Allergy (Verified 03/18/16 13:32) Itching codeine Allergy (Verified 12/19/16 04:01) Itching lisinopril Allergy (Verified 12/19/16 04:01) Swelling of Lip/Tongue/Throat Oxycodone [From Percocet] Allergy (Verified 03/12/16 13:31) Itching Labs on day of discharge: Labs from last 24 hours 12/25/16 12/25/16 12/24/16 05:00 05:00 12:51 WBC 14.5 H RBC 4.27 Hgb 12.1 L Hct 37.1 L MCV 86.9 MCH 28.3 MCHC 32.6 RDW 13.0 Plt Count 192 MPV 10.3 Immature Gran % Seg Neutrophils % 74.0 Band Neutrophils % 5.0 H Lymphocytes % 10.0 Monocytes % 9.0 Eosinophils % Basophils % Metamyelocytes % 1.0 H Myelocytes % 1.0 H Neutrophils # 11.5 H Lymphocytes # 1.5 Monocytes # 1.3 Eosinophils # Basophils # Platelet Estimate Normal Sodium 140 Potassium 3.9 Chloride 105 Carbon Dioxide 28 BUN 34 H Creatinine 1.11 Est GFR ( Amer) > 60 Est GFR (Non-Af Amer) > 60 BUN/Creatinine Ratio 31 H Glucose 96 POC Glucose Est Mean Plasma Glucose 111 Hemoglobin A1c 5.5 Calculated Osmolality 297 Calcium 8.4 L Phosphorus 3.6 Magnesium 1.9 12/24/16 12/24/16 12/24/16 12:51 12:51 11:24 WBC 14.7 H RBC 4.15 L Hgb 12.1 L Hct 36.3 L MCV 87.5 MCH 29.2 MCHC 33.3 RDW 13.3 Plt Count 206 MPV 10.4 Immature Gran % 4.8 H Seg Neutrophils % 69.9 Band Neutrophils % Lymphocytes % 11.5 Monocytes % 13.0 Eosinophils % 0.3 Basophils % 0.5 Metamyelocytes % Myelocytes % Neutrophils # 10.3 H Lymphocytes # 1.7 Monocytes # 1.9 H Eosinophils # 0.1 Basophils # 0.1 Platelet Estimate Sodium 142 Potassium 4.0 Chloride 106 Carbon Dioxide 29 BUN 37 H Creatinine 1.09 Est GFR ( Amer) > 60 Est GFR (Non-Af Amer) > 60 BUN/Creatinine Ratio 34 H Glucose 112 H POC Glucose 106 H Est Mean Plasma Glucose Hemoglobin A1c Calculated Osmolality 303 H Calcium 8.7 Phosphorus 3.2 Magnesium 1.9 12/24/16 04:03 WBC RBC Hgb Hct MCV MCH MCHC RDW Plt Count MPV Immature Gran % Seg Neutrophils % Band Neutrophils % Lymphocytes % Monocytes % Eosinophils % Basophils % Metamyelocytes % Myelocytes % Neutrophils # Lymphocytes # Monocytes # Eosinophils # Basophils # Platelet Estimate Sodium Potassium Chloride Carbon Dioxide BUN Creatinine Est GFR ( Amer) Est GFR (Non-Af Amer) BUN/Creatinine Ratio Glucose POC Glucose 98 H Est Mean Plasma Glucose Hemoglobin A1c Calculated Osmolality Calcium Phosphorus Magnesium Preliminary micro results at discharge 12/20/16 22:44 Blood Culture - Preliminary Peripheral Venipuncture No growth. 12/20/16 22:43 Blood Culture - Preliminary Peripheral Venipuncture No growth. 12/20/16 14:14 Blood Culture - Preliminary Peripheral Venipuncture No growth. - Impressions ITS Impressions KUB X-Ray 12/18/16 15:13 IMPRESSION: Nasogastric tube tip in the gastric fundus with proximal port well beyond the GE junction. D/ / Alonso Downs MD / Alonso Downs MD Interpreting Provider: Alonso Downs MD Retroperitoneum Ultrasound 12/19/16 09:00 IMPRESSION: Unremarkable ultrasound of the kidneys. No hydronephrosis. D/ / Pop Liang MD / Pop Liang MD Interpreting Provider: Pop Liang MD Chest X-Ray 12/20/16 10:35 IMPRESSION: Endotracheal tube and nasogastric tube project in normal positions. No acute cardiopulmonary disease. D/ / Fish Borrero MD / Fish Borrero MD Interpreting Provider: Fish Borrero MD Chest X-Ray 12/21/16 06:00 IMPRESSION: Bibasilar atelectasis or pneumonia. D/ / Jeremy Machuca MD / Jeremy Machuca MD Interpreting Provider: Jeremy Machuca MD Head CT 12/23/16 07:50 IMPRESSION: 1. No acute intracranial abnormality. 2. Minimal chronic microvascular ischemic change. 3. Scattered sinusitis. D/ / Constantino Goncalves MD / Constantino Goncalves MD Interpreting Provider: Constantino Goncalves MD Date of admission: 12/18/16 13:03 Primary care physician: Jj Hathaway DO Discharging clinician: Eloy Benjamin Anticipated date of discharge: 12/25/16 - Patient Status Disposition: Home, Self-Care Condition: Good Functional capacity at discharge: independent ambulation Overall status at discharge: patient is back to baseline - Discharge Instructions Instructions: COPD, Wound Care Coordinator (GEN), Chronic Hypertension, Wound Care Coordinator (GEN) Follow Up With: Jj Hathaway DO [Primary Care Provider] - Additional Instructions: Take Norvasc as prescribed daily for high blood pressure. Check your blood pressure home daily. Keep a log of this and take this to your primary care physician to discuss any further care for your high blood pressure. Follow up with your primary care physician, Dr. Hathaway, within the next 2 weeks in order to get refill on your high blood pressure medication. Use albuterol inhaler as prescribed as needed for any shortness of breath or wheezing. Also discuss any further care or testing for COPD with your primary care physician. Return to the ER sooner for any new or worsening symptoms. - Diet and Activity Activity: increase activity as tolerated Diet: regular diet - Hospital Course Hospital course: Mr. Suresh is a 61 year old male with past medical history of hypertension, COPD. Patient was on lisinopril at home. He developed swelling of the tongue on 12/18/2016 and was admitted for angioedema. Patient was intubated during his stay, given steroids, Benadryl, Pepcid. Angioedema resolved and patient was extubated on 12/23/16. He is tolerating room air well, saturating and upper 90s. No complaints of shortness of breath, chest pain, difficulty swallowing, any facial edema. Tolerating regular diet well. Due to hypertension, patient was started on Norvasc 10 mg daily and metoprolol 50 mg twice daily. However, patient became very tachycardic in the 50s. Metoprolol was therefore discontinued. Patient currently on Norvasc 10 mg daily for hypertension. Overall, patient has improved and will be discharged home on Norvasc 10 mg daily. We will have him follow-up with his primary care physician for further care and management of hypertension. He does not take any home COPD medications. We will have him follow-up with his primary care physician to discuss further care. We will send home with albuterol inhaler. - Time Spent with Patient Total time spent providing and/or coordinating discharge services: Less than 30 minutes Physical Examination Vital Signs: Vital Signs, Last 4 Hours Temp Pulse Resp BP Pulse Ox 12/25/16 07:47 54 20 136/76 92 12/25/16 07:40 98.2 F 12/25/16 05:58 48 16 93 General appearance: no acute distress Eyes: nonicteric ENT: oropharynx moist Neck: supple Effort: normal Inspection: normal Auscultation: bilateral: clear Cardiovascular: other (sinus bradycardia) Gastrointestinal: normoactive bowel sounds, soft, non-tender, non-distended Integumentary: normal Extremities: no cyanosis Musculoskeletal: no deformities Gait: normal gait, normal posture normal mental status, non-focal exam, pupils equal and round mood appropriate, affect normal <Evelyn Cueva M - Last Filed: 12/25/16 14:59> Date of Encounter: 12/25/16 Labs on day of discharge: Labs from last 24 hours 12/25/16 12/25/16 12/24/16 05:00 05:00 11:24 WBC 14.5 H RBC 4.27 Hgb 12.1 L Hct 37.1 L MCV 86.9 MCH 28.3 MCHC 32.6 RDW 13.0 Plt Count 192 MPV 10.3 Seg Neutrophils % 74.0 Band Neutrophils % 5.0 H Lymphocytes % 10.0 Monocytes % 9.0 Metamyelocytes % 1.0 H Myelocytes % 1.0 H Neutrophils # 11.5 H Lymphocytes # 1.5 Monocytes # 1.3 Platelet Estimate Normal Sodium 140 Potassium 3.9 Chloride 105 Carbon Dioxide 28 BUN 34 H Creatinine 1.11 Est GFR ( Amer) > 60 Est GFR (Non-Af Amer) > 60 BUN/Creatinine Ratio 31 H Glucose 96 POC Glucose 106 H Calculated Osmolality 297 Calcium 8.4 L Phosphorus 3.6 Magnesium 1.9 12/24/16 04:03 WBC RBC Hgb Hct MCV MCH MCHC RDW Plt Count MPV Seg Neutrophils % Band Neutrophils % Lymphocytes % Monocytes % Metamyelocytes % Myelocytes % Neutrophils # Lymphocytes # Monocytes # Platelet Estimate Sodium Potassium Chloride Carbon Dioxide BUN Creatinine Est GFR ( Amer) Est GFR (Non-Af Amer) BUN/Creatinine Ratio Glucose POC Glucose 98 H Calculated Osmolality Calcium Phosphorus Magnesium Preliminary micro results at discharge 12/20/16 22:44 Blood Culture - Preliminary Peripheral Venipuncture No growth. 12/20/16 22:43 Blood Culture - Preliminary Peripheral Venipuncture No growth. 12/20/16 14:14 Blood Culture - Preliminary Peripheral Venipuncture No growth. - Impressions ITS Impressions KUB X-Ray 12/18/16 15:13 IMPRESSION: Nasogastric tube tip in the gastric fundus with proximal port well beyond the GE junction. D/ / Alonso Downs MD / Alonso Downs MD Interpreting Provider: Alonso Downs MD Retroperitoneum Ultrasound 12/19/16 09:00 IMPRESSION: Unremarkable ultrasound of the kidneys. No hydronephrosis. D/ / Pop Liang MD / Pop Liang MD Interpreting Provider: Pop Liang MD Chest X-Ray 12/20/16 10:35 IMPRESSION: Endotracheal tube and nasogastric tube project in normal positions. No acute cardiopulmonary disease. D/ / Fish Borrero MD / Fish Borrero MD Interpreting Provider: Fish Borrero MD Chest X-Ray 12/21/16 06:00 IMPRESSION: Bibasilar atelectasis or pneumonia. D/ / Jeremy Machuca MD / Jeremy Machuca MD Interpreting Provider: Jeremy Machuca MD Head CT 12/23/16 07:50 IMPRESSION: 1. No acute intracranial abnormality. 2. Minimal chronic microvascular ischemic change. 3. Scattered sinusitis. D/ / Constantino Goncalves MD / Constantino Goncalves MD Interpreting Provider: Constantino Goncalves MD Date of admission: 12/18/16 13:03 Primary care physician: Jj Hathaway DO - Hospital Course Hospital course: Mr. Suresh is a 61 year old male - Time Spent with Patient Total time spent providing and/or coordinating discharge services: - Attending Attestation I examined this patient and my medical decision-making was reviewed with the Resident Physician. I agree with the documented findings, disposition and treatment plan as described except to the extent set forth below. Patient seen and examined. Labs, radiology, chart personally reviewed. Agree with resident's history and physical, assessment, plan with following comments: AUTHORS MOTIVATIONAL: Patient follows commands, Pulmonary: Acceptable oxygenation and ventilation Cardiovascular: stable Patient remained hemodynamically stable and he will be discharged home. Patient needs to follow up with his primary care physician.
[2016-12-25] MEDS: amLODIPine 5 MG TABLET PO SCH (09:02)
== END 2016-12-25 10:50 | disposition home or self-care (01) | DRG 951 ==
LOC: EMEROO 09:42 → ICNU 13:03
PROVIDERS: ADMIT Internal Medicine Hospice and Palliative Medicine; ATTEND Internal Medicine Hospice and Palliative Medicine